=== PATIENT | male | born 1940 | race Hispanic/Latino ===

== ENCOUNTER 2023-09-07 12:10 | Inpatient (IN) | payer OTHER ==
--- OUTSIDE RECORDS SUMMARY | 2023-09-07 12:22 | XMS REPORT | Continuity of Care Document ---
:1940 Author Organization [facility] t Address [address] [facility]. Luis Carlos. [address] [place] [address] Care Team Providers Name Role Phone PCP, PATIENT DOES NOT HAVE A Primary Care Physician Unavaila FROILAN Joseph Attending Clinician Unavailable FROILAN KERN Attending Clinician Unavailable Shayy Valdez Attending Clinician Unavailable Neel Khan Attending Clinician Unavailable Doretha Jara Attending Clinician Unavailable CRISTIAN SRIVASTAVA Attending Clinician Unavailable CRISTIAN SRIVASTAVA Attending Clinician Unavailable Yaneth Gannon MA Attending Clinician Unavailable JOSE BEAL Attending Clinician Unavailable FROILAN KERN Admitting Clinician Unavailable Payers Payer Name Policy Type Policy Number Effective Date Expiration Date S shahrzad [employer] [id number] 2022spring 00:00:00 [place] CIGNA [id number] 2020 2020 HE[facility]PRING 00:00:00 00:00:00 MEDICARE ADVANTAGE HMO CIGNA HEALTHSPRING [id number] 2020 MEDICARE 00:00:00 Cigna-HealthSpring C1 [id number] Common Medicare Replace [facility] Cigna-HealthSpring C1 [id number] Common Medicare Replace [facility] Cigna-HealthSpring C1 [id number] Common Medicare Replace [facility] Cigna-Health[facility]son C1 [id number] Common Medicare Replace [facility] C1 [id number] Common Medicare Replace [facility] C1 [id number] Common Medicare Replace [facility] Cigna-Healthring C1 [id number] Common Medicare Replace [facility] Cigna-HealthDonnellson C1 [id number] Common Medicare Replace [facility] Cig-Healthring C1 [id number] Common Medicare Replace [facility] Problems Condition Condition Condition Status Onset Resolution Last Treating Co mments Source Name Details Category Date Date Treatment Clinician Date [id number] Pre-op [place] [id number] evaluation [facility] [id number] Lipid Problem Active Common screening [facility] [id number] Pain in Problem Active Common right knee [facility] [id number] Other Problem Active Common chronic [facility] pain [facility] [id number] Vitamin D Problem Active Comm on deficiency [facility] [id number] Eosinophil Problem Active Co mmon ia [facility] [id number] Prediabete Problem Active Co mmon s [facility] [id number] Elevated Problem Active Comm on PSA [facility] 34739816 Hypertensi Problem Active Com mon on, Spirit unspecifie - [facility] d type [facility] [id number] Elevated Problem Active Comm on alkaline Spirit phosphatas - [facility] e level [facility] [id number] [place] [address] bilirubin, Spirit elevated [facility] [id number] At risk Problem Active Commo n for falls [facility] [id number] [place] in [place] [address] left knee [facility] Prostate Prostate Problem Active Commo n cancer cancer [facility] [id number] Imbalance Problem Active Com mon [facility] [id number] History of Problem Active Co mmon colon [facility] cancer - [facility] Malignant Malignant Problem Active Com mon tumor of neoplasm Spirit colon of colon, - [facility]I unspecifie [facility] Hyperglyce DM Problem Active Commo n brandon due to (diabetes Spi rit type 2 mellitus), - CHI diabetes type 2, St mellitus uncontroll [facility] Walker as Walker as Problem Active Com mon ambulation ambulation Sp pablo aid aid - [facility] Essential Essential Problem Active Com mon hypertensi (primary) Spi rit on hypertensi - [facility] on [facility] [id number] Primary Problem Active Commo n osteoarthr Spirit itis of - [facility] both knees [facility] Type 2 Type 2 Problem Active Common diabetes diabetes Spirit mellitus mellitus - [facility] without without St complicati complicati [facility] Allergies, Adverse Reactions, Alerts Allergy Allergy Status Severity Reaction(s) Onset Inactive Treating Comm ents Source Name Type Date Date Clinician NO KNOWN Drug Active Univers ALLERGIE Class ity of S [facility] Social History Social Habit Start Date Stop Date Quantity Comments Source Exposure to Not sure [facility] SARS-CoV-2 (event) History of Tobacco Common [facility] - Use [facility] Tobacco use and 2021-03-28 2021-03-28 Smokeless [facility] exposure 00:00:00 00:00:00 tobacco non-user Alcohol intake 2021-03-28 2021-03-28 Current drinker [facility] alth 00:00:00 00:00:00 of alcohol (finding) Sex Ass[birth year] At [birth year] [facility] Smoking Status Start Date Stop Date Source Tobacco smoking consumption Meth [facility] unknown Never Smoker [facility] Medications Ordered Filled Start Stop Current Ordering Indication Dosage Frequency Signature Comments Components Source Medication Medication Date Date Medication? Clinician (SIG) Name Name amLODIPine Yes 1 (one) [facility] (Norvasc) 5-17 time each Healt h 10 MG 21:15: day at the tablet 28 same time. amLODIPine Yes 1 (one) [facility] (Norvasc) 5-17 time each Healt h 10 MG 21:15: day at the tablet 28 same time. amLODIPine Yes 1 (one) [facility] (Norvasc) 5-17 time each Healt h 10 MG 16:15: day at the tablet 28 same time. amLODIPine 0 Yes 1 (one) [facility] (Norvasc) 5-17 time each Healt h 10 MG 16:15: day at the tablet 28 same time. tamsulosin Yes TAKE 1 [facility] (Flomax) 4-01 CAPSULE BY Healt h 0.4 MG 24 00:00: MOUTH ONCE hr capsule 00 DAILY AT BEDTIME tamsulosin 0 Yes TAKE 1 [facility] (Flomax) 4-01 CAPSULE BY Healt h 0.4 MG 24 00:00: MOUTH ONCE hr capsule 00 DAILY AT BEDTIME tamsulosin Yes TAKE 1 [facility] (Flomax) 4-01 CAPSULE BY Healt h 0.4 MG 24 00:00: MOUTH ONCE hr capsule 00 DAILY AT BEDTIME tamsulosin 2020-0 Yes TAKE 1 [facility] (Flomax) 4-01 CAPSULE BY Healt h 0.4 MG 24 00:00: MOUTH ONCE hr capsule 00 DAILY AT BEDTIME meloxicam 2020-0 Yes [facility] (Mobic) 15 3-17 Health MG tablet 00:00: 00 meloxicam 2020-0 Yes [facility] (Mobic) 15 3-17 Health MG tablet 00:00: 00 meloxicam 2020-0 Yes [facility] (Mobic) 15 3-17 Health MG tablet 00:00: 00 meloxicam 2020-0 Yes [facility] (Mobic) 15 3-17 Health MG tablet 00:00: 00 Lisinopril Lisinopril Yes Mindy 1 tablet Common [facility] Amlodipine Amlodipine Yes Mindy 1 tablet Common Besylate Besylate [place] Spi rit - [facility] Mobic Mobic Yes Mindy 1 tablet Common Blue as needed Spirit for pain - [facility] Lisinopril Lisinopril No 1{table QD Lisinopril 20 MG 20 MG t} 20 MG Amlodipine Amlodipine No 1{table QD Amlodipine Besylate 10 Besylate 10 t} Besylate MG MG 10 MG Mobic 15 MG Mobic 15 MG No QD Mobic 15 MG Flomax 0.4 Flomax 0.4 No 1{capsu QD Flomax 0.4 MG MG le} MG Lisinopril Lisinopril No 1{table QD Lisinopril 20 MG 20 MG t} 20 MG amLODIPine amLODIPine No 1{table QD amLODIPine Besylate 10 Besylate 10 t} Besylate MG MG 10 MG Mobic 15 MG Mobic 15 MG No QD Mobic 15 MG Flomax 0.4 Flomax 0.4 No 1{capsu QD Flomax 0.4 MG MG le} MG Lisinopril Lisinopril No 1{table QD Lisinopril 20 MG 20 MG t} 20 MG amLODIPine amLODIPine No 1{table QD amLODIPine Besylate 10 Besylate 10 t} Besylate MG MG 10 MG Mobic 15 MG Mobic 15 MG No QD Mobic 15 MG Flomax 0.4 Flomax 0.4 No 1{capsu QD Flomax 0.4 MG MG le} MG Lisinopril Lisinopril No 1{table QD Lisinopril 20 MG 20 MG t} 20 MG amLODIPine amLODIPine No 1{table QD amLODIPine Besylate 10 Besylate 10 t} Besylate MG MG 10 MG Mobic 15 MG Mobic 15 MG No QD Mobic 15 MG Flomax 0.4 Flomax 0.4 No 1{capsu QD Flomax 0.4 MG MG le} MG Mobic 15 MG Mobic 15 MG No QD Mobic 15 MG Lisinopril Lisinopril No 1{table QD Lisinopril 20 MG 20 MG t} 20 MG Amlodipine Amlodipine No 1{table QD Amlodipine Besylate 10 Besylate 10 t} Besylate MG MG 10 MG Mobic 15 MG Mobic 15 MG No QD Mobic 15 MG Lisinopril Lisinopril No 1{table QD Lisinopril 20 MG 20 MG t} 20 MG Amlodipine Amlodipine No 1{table QD Amlodipine Besylate 10 Besylate 10 t} Besylate MG MG 10 MG Amlodipine Amlodipine No 1{table QD Amlodipine Besylate 10 Besylate 10 t} Besylate MG MG 10 MG Lisinopril Lisinopril No 1{table QD Lisinopril 20 MG 20 MG t} 20 MG Flomax 0.4 Flomax 0.4 No 1{capsu QD Flomax 0.4 MG MG le} MG Mobic 15 MG Mobic 15 MG No QD Mobic 15 MG Amlodipine Amlodipine No 1{table QD Amlodipine Besylate 10 Besylate 10 t} Besylate MG MG 10 MG Mobic 15 MG Mobic 15 MG No QD Mobic 15 MG Lisinopril Lisinopril No 1{table QD Lisinopril 20 MG 20 MG t} 20 MG Flomax 0.4 Flomax 0.4 No 1{capsu QD Flomax 0.4 MG MG le} MG Mobic 15 MG Mobic 15 MG No QD Mobic 15 MG Flomax 0.4 Flomax 0.4 No 1{capsu QD Flomax 0.4 MG MG le} MG Amlodipine Amlodipine No 1{table QD Amlodipine Besylate 10 Besylate 10 t} Besylate MG MG 10 MG Lisinopril Lisinopril No 1{table QD Lisinopril 20 MG 20 MG t} 20 MG Flomax Flomax 2020- Mindy 1 capsule Comm on 02-18 [place] [facility] 00:00 - [facility] :00 [facility] Flomax 0.4 Flomax 0.4 2020- No 1{capsu QD Flomax 0.4 MG MG 02-18 le} MG 00:00 :00 Flomax 0.4 Flomax 0.4 2020- No 1{capsu QD Flomax 0.4 MG MG 02-18 le} MG 00:00 :00 Vital Signs Vital Name Observation Time Observation Value Comments Source height 2021-03-29 10:00:00 65.60 [in_i] [facility] weight 2021-03-29 10:00:00 191.8 [lb_av] [facility] temperature 2021-03-29 10:00:00 97.7 [degF] [facility] bmi 2021-03-29 10:00:00 31.33 kg/m2 [facility] oximetry 2021-03-29 10:00:00 97 % [facility] respiratory rate 2021-03-29 10:00:00 18 /min Comm on [facility] blood pressure 2021-03-29 10:00:00 136 mm[Hg] [facility] - systolic [facility] blood pressure 2021-03-29 10:00:00 72 mm[Hg] [facility] diastolic [facility] Systolic blood 2021-03-28 21:06:00 178 mm[facility]Hg[facility] Diastolic blood 2021-03-28 21:06:00 92 mm[Hg] [facility] Heart rate 2021-03-28 21:06:00 84 /min [facility] 2021-03-28 21:06:00 167.6 cm [facility] weight 2021-03-28 21:06:00 86.864 [facility] BMI 2021-03-28 21:06:00 30.91 kg/m2 [facility] height 2020-09-29 14:40:00 65.60 [in_i] [facility] weight 2020-09-29 14:40:00 195.6 [lb_av] [facility] temperature 2020-09-29 14:40:00 98.4 [degF] [facility] bmi 2020-09-29 14:40:00 31.95 kg/m2 [facility] oximetry 2020-09-29 14:40:00 95 % [facility] respiratory rate 2020-09-29 14:40:00 18 /min Comm on [facility] blood pressure 2020-09-29 14:40:00 141 mm[Hg] Common [facility] - systolic [facility] blood pressure 2020-09-29 14:40:00 65 mm[Hg] Common [facility] - diastolic [facility] Procedures Procedure Date / Time Performed Performing Clinician [facility] e MRI PELVIS W WO CONTRAST 2021-04-06 15:16:15 Cristian Srivastava [facility] MRI PELVIS W WO CONTRAST 2021-04-06 15:16:15 SrivastavaCristian [facility] Plan of Care Planned Activity Planned Date Details Comments Source Future Scheduled 2023 COVID-19 VACCINE (#1) [facility] Test 15:10:39 [code = COVID-19 VACCINE (#1)] Future Scheduled 2023 SHINGLES VACCINES (1 Met [facility] Test 15:10:39 of 2) [code = SHINGLES VACCINES (1 of 2)] Future Scheduled 2023 RSV VACCINES > 60 YR Met [facility] Test 15:10:39 (1 - 1-dose 60+ series) [code = RSV VACCINES > 60 YR (1 - 1-dose 60+ series)] Future Scheduled 2023 65+ PNEUMOCOCCAL Methodi [facility] Test 15:10:39 VACCINE (1 - PCV) [code = 65+ PNEUMOCOCCAL VACCINE (1 - PCV)] Future Scheduled 2023 INFLUENZA VACCINE (#1) [facility] Test 15:10:39 [code = INFLUENZA VACCINE (#1)] Encounters Start End Encounter Admission Attending Care Care Encounter Source Date/Time Date/Time Type Type Clinicians Facility Department ID 2023-09-03 Inpatient X FROILAN KERN [facility] [id number] Univers 09:20:00 FROILAN KERN [facility] 2021-12-07 Outpatient Valdez, Na STLMLC STLMLC [id number] Common 13:45:17 [id number] [facility] 2021-12-07 Outpatient Valdez, Na STLMLC STLMLC [id number] Common 13:04:28 [id number] [facility] 2021-12-07 Outpatient Valdez, Na STLMLC STLMLC [id number] Common 12:17:36 [id number] [facility] 2021-12-07 Outpatient Bill Kin STLMLC STLMLC [id number] Common 12:15:16 [id number] [facility] 2021-12-07 Outpatient Bill, Kin STLMLC STLMLC [id number] Common 12:05:59 [id number] [facility] 2021-12-07 Outpatient Millender, STLMLC STLMLC [id number] Common 11:48:13 Doretha [id number] [facility] 2021-12-07 Outpatient Millender, STLMLC STLMLC [id number] Common 11:31:01 Doretha [id number] [facility] 2021-12-07 Outpatient Millender, STLMLC STLMLC [id number] Common 11:05:51 Doretha [id number] [facility] 2021-12-07 Outpatient Estefani, STGENESISLC STLMLC [id number] Common 11:05:31 Doretha [id number] [facility] 2021-12-07 Outpatient Estefani, STLMLC STLMLC [id number] Common 11:01:24 Doretha [id number] [facility] 2021-05-26 Outpatient SRIVASTAVA, [facility] [id number] [place] 01:02:14 [facility] 2021-05-24 Outpatient SRIVASTAVA, [facility] [id number] [place] 09:38:35 [facility] 2021-04-07 Outpatient SRIVASTAVA, [facility] [id number] [place] 14:51:44 [facility] 2021-05-20 2021-05-20 (TEL) STLMLC STLMLC [id number] Co mmon 00:00:00 00:00:00 [facility] 2021-04-25 2021-04-25 [facility] [facility] 07:01:00 12:05:00 [facility] 2021-04-16 2021-04-16 (TEL) STLMLC STLMLC [id number] Co mmon 00:00:00 00:00:00 [facility] 2021-04-12 2021-04-12 (TEL) STLMLC STLMLC [id number] Co mmon 00:00:00 00:00:00 [facility] 2021-03-30 2021-03-30 Telephone Yaneth Gannon [facility] [id number] [place] 00:00:00 00:00:00 Yaneth Gannon [place] [id number] [facility] [id number] [id number] AND 3 WOMENS 2021-03-29 2021-03-29 OFFICE STLC STLC [id number] Co mmon 00:00:00 00:00:00 VISIT [facility] LEVEL 4 [facility] 2021-03-28 2021-03-28 Office Atif [facility] [id number] [place] 15:07:01 15:22:01 Visit Cristian SUGAR [id number] He [facility] [id number] [id number] AND 3 WOMENS 2021-03-28 2021-03-28 EXT [facility] OP [facility], EXT [facility] [id number] [place] 00:00:00 00:00:00 Cristian LOCATION [id number] H ealth [id number] 2021-03-28 2021-03-28 EXT [facility] OP [facility], EXT [facility] [id number] [place] 00:00:00 00:00:00 Cristian LOCATION [id number] H ealth [id number] 2021-02-22 2021-02-22 (TEL) STLMLC STLMLC [id number] Co mmon 00:00:00 00:00:00 [facility] 2020-11-18 2020-11-18 (TEL) STLMLC STLMLC [id number] Co mmon 00:00:00 00:00:00 [facility] 2020-09-29 2020-09-29 OFFICE STLMLC STLMLC [id number] Co mmon 00:00:00 00:00:00 VISIT EST Spir it PT LEVEL 3 [facility] 2020-09-07 2020-09-07 [facility] [id number] [place] 00:00:00 00:00:00 JOSE Asif [facility] 2020-08-10 2020-08-10 (TEL) STLMLC STLMLC [id number] Co mmon 00:00:00 00:00:00 [facility] 2020-08-09 2020-08-09 (TEL) STLMLC STLMLC [id number] Co mmon 00:00:00 00:00:00 [facility] 2020-07-08 2020-07-08 [facility] [id number] Common 10:45:00 10:45:00 t Specialty/U Sp pablo Specialty rology [facility] Clinic [facility] 2020-07-05 2020-07-05 Out[facility] [id number] Common 16:21:00 16:21:00 t Specialty/U Sp pablo Specialty rology - [facility] /Urology Clinic [facility] 2020-06-29 2020-06-29 [facility] [id number] Common 14:30:00 14:30:00 t Specialty/U Sp pablo Specialty rology - [facility]I /[facility] Clinic [facility] 2020-06-09 2020-06-09 [facility] [id number] Common 14:17:00 14:17:00 t Specialty/U Sp pablo Specialty rology - [facility] /Urology Clinic [facility] 2020-06-01 2020-06-01 [facility] [id number] Common 10:15:00 10:15:00 t Specialty/U Sp pablo Specialty rology - [facility] /Urology Clinic [facility] 2020-05-27 2020-05-27 Out[facility] [id number] Common 08:00:00 08:00:00 t [facility] Road [facility] 2020-05-24 2020-05-24 [facility] [id number] Common 09:40:00 09:40:00 t [facility] it Road [facility] 2019-11-19 2019-11-19 Out[facility] [id number] Common 03:50:00 03:50:00 t [facility] it Road [facility] 2019-10-18 2019-10-18 Outpatient [facility] [id number] Common 04:14:00 04:14:00 t [facility] it Road [facility] 2019-10-14 2019-10-14 Outpatient [facility] [id number] Common 11:00:00 11:00:00 t [facility] it Road [facility] 2019-08-20 2019-08-20 Outpatient [facility] [id number] Common 09:30:00 09:30:00 t Specialty/U Sp pablo Specialty rology - [facility] /Urology Clinic [facility] 2019-07-08 2019-07-08 Outpatient [facility] [id number] Common 09:30:00 09:30:00 t Specialty/U Sp pablo Specialty rology - [facility] /[facility] Clinic [facility] 2019-05-29 2019-05-29 Outpatient [facility] [id number] Common 14:00:00 14:00:00 t Specialty/U Sp pablo Specialty rology - [facility] /Urology Clinic [facility] 2019-05-22 2019-05-22 Outpatient [facility] [id number] Common 13:20:00 13:20:[address] [facility] 2019-05-08 2019-05-08 Outpatient [facility] [id number] Common 09:48:00 09:48:[address] Sp[address] [facility] 2019-05-07 2019-05-07 Outpatient [facility] [id number] Common 13:25:00 13:25:[address] Sp[address] [facility] 2019-04-29 2019-04-29 Outpatient [facility] [id number] Common 11:20:00 11:20:[address] Sp[address] [facility] 2018-11-21 2018-11-21 Outpatient [facility] [id number] Common 00:31:00 00:31:[address] [facility] 2018-11-20 2018-11-20 Outpatient [facility] [id number] Common 11:30:00 11:30:[address] [facility] 2018-07-19 2018-07-19 Outpatient [facility] [id number] Common 14:30:00 14:30:[address] Sp[address] [facility] Results Test Description Test Time Test Comments Results Result Comments Source Chest Pa And Lat (2 Chest Pa And Lat Views) (2 Views)
[2023-09-07 12:38] VITALS: BMI 31.9
[2023-09-07] MEDS ORDERED: LACTULOSE 20 GM/30 ML UCUP PO PRN (15:25)
[2023-09-07] MEDS: ENOXAPARIN 40 MG/0.4 ML SQ SCH (17:11)
[2023-09-07] MEDS ORDERED: GLUCAGON 1 MG/VIAL IM PRN (18:12)
[2023-09-07] MEDS ORDERED: D10W 250 ML BAG IV PRN (18:21)
[2023-09-07] MEDS: MAGNESIUM OXIDE 400 MG TAB PO SCH (19:44)
[2023-09-07] MEDS: GABAPENTIN 100 MG CAP PO SCH (19:44)
[2023-09-07] MEDS: ATORVASTATIN 40 MG TAB PO SCH (19:44)
[2023-09-07] MEDS: INSULIN REGULAR (HUMAN) 100 UNIT/ML SQ SCH (19:45)
[2023-09-07] MEDS: HYDROCODONE/APAP 5/325 MG TAB PO PRN (21:37)
[2023-09-07 22:53] LABS: Specific Gravity 1.028 (1.005-1.030); Urine Bacteria None Seen /HPF (<20); Urine Bilirubin NEGATIVE (Negative); Urine Blood Negative (Negative); Urine Clarity Clear (Clear); Urine Color Yellow (Yellow); Urine Glucose NEGATIVE (Negative); Urine Mucus 1+ /HPF (None Seen); Urine Protein TRACE (Negative); Urine RBC <5 /HPF (None Seen); Urine Urobilinogen 1+ (Normal); Urine pH 5.5 (5.0-7.0)
--- NOTE | 2023-09-08 02:42 | HP ---
Date of Admission: 09/07/2023 Time Of Service: 1:00 p.m. Chief Complaint: "I had a stroke and my left side is weak." History Of Present Illness: Mr. Jasmine is an 83-year-old patient with hypertension, diabetes quentin itus, colon cancer, prostate cancer, and poor compliance with medications, who came to [facility] on 09/01/2023 with left-sided weakness. He was asleep and woke up with the symptoms and was la st known well around 10 p.m. The following day is when he woke up and tried to stand, but left leg w as weak and had to crawl on the floor. Also noted left arm weakness. At [facility], CT sca n of the head showed no acute ischemic or hemorrhagic changes, but microvascular small-vessel ischemi c disease identified. 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 He continued his medication for diabetes mellitus and hy pertension and was put on high-dose statin. He continued insulin sliding scale for diabetes mellitus . The patient did have evaluation by Physical Therapy and it was determined that he required moderat e assistance for his ability to transfer, to ambulate, to take care of his activities of daily living . He did, previously, had a full independent functioning and was living with roommates and anglican vo lunteers. As a result of his medical comorbid conditions and his significant loss or decrease of his level of functioning, and his acute stroke, he was determined to be an [facility] where he will receive physical, occupational, speech therapy, physician evaluat ion management on a daily basis, prison 24 hours a day and social worker delinquency prevention to maximize his ind ependence and return home and minimize his risk of rehospitalization or worsening. Past Medical History: Diabetes mellitus, hypertension, colon cancer, prostate cancer, medication non compliance. Allergies: NO KNOWN DRUG ALLERGIES. Imaging: Imaging studies on 09/03/2023, CT angiogram of the head showed there is severe stenosis of the distal M1 segment of the left MCA. The remainder of MCA is patent and there is no other high-gra de stenosis or large vessel occlusion, otherwise. There is a prominent right paratracheal lymph node with indeterminate ground glass nodules in the right upper lobe of lung. On 09/03, a chest CT scan showed no acute issues, but as noted, the parenchymal lymph node changes. On 09/04, an MRI of the br ain showed acute to subacute infarct in the posterior limb of the right internal capsule consistent w ith the patient's left-sided deficits. Medications: Aspirin 81 mg daily, Plavix 75 mg daily, Lipitor 40 mg at bedtime, amlodipine 10 mg jill ly, Lovenox 40 mg subcutaneously daily, gabapentin 100 mg twice daily, lactulose 10 g twice daily, li docaine patch apply topically to the left knee as needed, Prinivil 40 mg daily, magnesium oxide 400 m g twice daily, Protonix 40 mg daily, Senokot-S 2 at bedtime. Family History: Noncontributory. Social History: Denies alcohol, tobacco, or IV drug use currently. Laboratory Studies: White blood cell count 7.9, hemoglobin 15.1, platelets 302. INR 1.09. Sodium 1 44, potassium 3.9, chloride 112, uuplzv-[id number] 27, BUN 21, creatinine 0.51, glucose 95 up to 113, A ST 20, ALT 29, alkaline phosphatase is 144, PSA elevated at 15. HDL cholesterol 52, LDL cholesterol 81, total cholesterol 158, triglycerides 175. Urinalysis shows 66 microalbumin to creatinine ratio, which is elevated and urine total protein is trace, otherwise unremarkable urinalysis. Review of Systems: Mr. Jasmine does report pain in the right knee from arthritis. Otherwise, mild arthralgias of the right knee and shoulders, mild myalgias and incoordination with some weakness in the right upper and lower extremities. He reported no bowel movements for 4 days up to earlier today when he had 2 bowel movements after receiving stool softeners and laxatives. Otherwise, no psychiatric complaints. No significant pulmonary complaints. No genitourinary complaints. No dermatological complaints. Physical Examination: Vital Signs: Blood pressure 157/88, pulse up to 95, respiratory rate 16, temperature 98.1, oxygen sa turation 95%. General: Mr. Jasmine is getting ready to do physical therapy. He was standing with a walker and t he physical therapist at his side. HEENT: He appears normocephalic. He has poor dentition. He is atraumatic and sclerae anicteric. O ropharynx is moist. Neck: Supple. Chest: Clear. Heart: Regular. Extremities: Show in his left knee, there is some swelling where there is arthritis. Otherwise, no cyanosis or edema. Neurological: In terms of cranial nerves, he has no focal cranial nerve deficits, however, his left upper and lower extremity show [id number] weakness around 4/5 proximally and distally. There i s decreased sensation in the left upper and lower compared to right upper and lower extremities. David e ataxic gait when he attempts to ambulate but drop up in the left lower extremity. Current Level Of Functioning: Mod assist for eating, oral hygiene, toileting, bathing, upper and low er body dressing. Max assist for donning and doffing footwear, contact guard for rolling right-to-le ft; moderate assistance for lying to sitting, sit to stand. Transfer from bed to chair, mod assist. Toilet transfer, moderate assistance and moderate assistance to ambulate 70 feet with a rolling walk er. Rehabilitation And Medical Assessment And Plan: [facility] with impairment category 01, stroke, his impairment group code is 01.1 left body involveme nt, right brain and his etiologic diagnosis is right subcortical stroke. His comorbid conditions, di abetes mellitus type 2, hypertension, and decreased mobility, arthritis and left knee pain. Plan: 1.He will have physical, occupational and speech therapy for 3.5 hours, 5 of 7 days. 2.We will put a lidocaine patch, one already there and gabapentin for left arthritic knee pain. 3.Lovenox for DVT prophylaxis. 4.Lipitor for dyslipidemia. 5.Aspirin 81 mg and Plavix 75 mg daily for stroke risk reduction. 6.Norvasc 10 mg daily and Prinivil 40 mg daily for hypertension. 7.He did report some mild spasming in the right calf. He will have magnesium 400 mg twice daily. 8.Protonix for GE reflux and as needed. If he becomes constipated again, he will have Senokot-S and lactulose. 9.He does have an insulin sliding scale and currently blood sugars are fairly well controlled. Impact Of Comorbidities: Currently, the arthritic pain in the left knee is making it a mild challeng e for him to stand along with the stroke affecting the left side. As noted, we will have patch, june pentin. If need be, we will have Ultram or stronger medication to help with his pain. Rehab Specific Plan: Mr. Jasmine has 3.5 hours, 5 of 7 days of physical, occupational, speech ther apy to help with his improvement in his transfers from bed to chair, to toilet and to shower along wi th his ability to perform showering and toileting in addition to his capacity to perform other activi ties of daily living. He will be able to ambulate 250 feet with a rolling walker with modified indep endence, up and down 10 steps with modified independence. Propel a wheelchair 250 feet with modified independence and performing cognitive functioning with modified independence. He will chew and swal low with modified independent as well. He will also have prison 24 hours a day, physician e valuation on a daily basis. He will have Social Work for assisting with his discharge planning. Mr. Jasmine has a good understanding of the process of admission to the inpatient rehabilitation [facility] and has a potential to make good improvement and will receive physical, occupational, and spee ch therapy. If need be, services from Nutrition and the Hospitalist Service may be consulted. Given his complex medical condition and risk of further complications, rehabilitation cannot be safely or effectively performed at a lower level facility such as a prison facility. Barriers To Discharge: Currently, his arthritic pain in the left knee where he is also weak from his stroke is a mild barrier, but can be overcome with mitigating factors such as addressing the pain an d the arthritic swelling. Estimated Length Of Stay: Around 12 days. Disposition: Home with friends and family. Prognosis: Good. Rehabilitation Goals: 1.Become independent with upper and lower body dressing, toileting, showering. 2.Independent with ambulating 250 feet with a rolling walker. 3.Independent with up and down 10 steps. 4.Independent with his mobilizing a wheelchair 250 feet. 5.Independent with his cognitive functioning, chewing, swallowing. 6.Have all of his medical conditions managed optimally. The above goals were reviewed with Mr. Jasmine and he is in agreement. By signing this document, I acknowledge that I personally performed a full physical examination on Mr Shira Jasmine no later than 24 hours after his admission to the inpatient rehabilitation facility and d etermined that he is able to tolerate the above course of treatment at an intensive level for a reaso nable period of time. A detailed individualized plan of care for him will be completed by [facility] 4 based on the preadmission screen, history and physical and therapy evaluations. MARTY Voice ID: [id number]
[2023-09-08] MEDS: INSULIN REGULAR (HUMAN) 100 UNIT/ML SQ SCH (07:15)
[2023-09-08 07:32] LABS: Absolute Lymphocytes (CBC) 1.5 K/uL (0.7-4.9); Hematocrit 44.1 % (39.6-49.0); Lymphocytes % 16.2 % (15.3-44.8); MCV 85.8 fL (80-100); Platelets 342 thou/uL (152-406); RBC Red Blood Cell Count 5.14 M/uL (4.33-5.43)
[2023-09-08] MEDS: GABAPENTIN 100 MG CAP PO SCH ×2 (07:50→20:30)
[2023-09-08] MEDS: CLOPIDOGREL 75 MG TABLET PO SCH (07:50)
[2023-09-08] MEDS: PANTOPRAZOLE 40MG TABLET PO SCH (07:50)
[2023-09-08] MEDS: ASPIRIN EC 81 MG TAB PO SCH (07:50)
[2023-09-08] MEDS: LIDOCAINE 4% PATCH TOP SCH (07:51)
[2023-09-08] MEDS: MAGNESIUM OXIDE 400 MG TAB PO SCH ×2 (07:51→20:31)
[2023-09-08] MEDS ORDERED: lisinopriL 20 MG TAB PO SCH ×2 (08:00→08:15)
[2023-09-08] MEDS ORDERED: AMLODIPINE 10 MG TAB PO SCH (08:00)
[2023-09-08 08:07] LABS: Albumin 3.6 g/dL (3.4-5.0); Magnesium 2.4 mg/dL (1.6-2.4); Potassium 3.8 mEq/L (3.5-5.1); Prealbumin 20.6 mg/dL (20-40)
[2023-09-08] MEDS: AMLODIPINE 5 MG TAB PO SCH ×3 (08:15→20:31)
[2023-09-08] MEDS: lisinopriL 20 MG TAB PO SCH ×2 (12:00→20:31)
[2023-09-08] MEDS: ENOXAPARIN 40 MG/0.4 ML SQ SCH (16:26)
[2023-09-08] MEDS: ATORVASTATIN 40 MG TAB PO SCH (20:31)
[2023-09-09] MEDS: PANTOPRAZOLE 40MG TABLET PO SCH (06:55)
[2023-09-09] MEDS: lisinopriL 20 MG TAB PO SCH ×2 (08:00→19:44)
[2023-09-09] MEDS: CLOPIDOGREL 75 MG TABLET PO SCH (08:07)
[2023-09-09] MEDS: GABAPENTIN 100 MG CAP PO SCH ×2 (08:07→19:45)
[2023-09-09] MEDS: ASPIRIN EC 81 MG TAB PO SCH (08:07)
[2023-09-09] MEDS: LIDOCAINE 4% PATCH TOP SCH (08:07)
[2023-09-09] MEDS: MAGNESIUM OXIDE 400 MG TAB PO SCH ×2 (08:07→19:44)
[2023-09-09] MEDS: AMLODIPINE 5 MG TAB PO SCH ×2 (08:08→19:44)
[2023-09-09] MEDS: ENOXAPARIN 40 MG/0.4 ML SQ SCH (16:02)
[2023-09-09 19:43] LABS: Absolute Lymphocytes (CBC) 1.2 K/uL (0.7-4.9); Hematocrit 43.8 % (39.6-49.0); Lymphocytes % 6.1 % (15.3-44.8); MCV 85.5 fL (80-100); MPV 7.2 fL (7.6-11.3); Platelets 331 thou/uL (152-406); RBC Red Blood Cell Count 5.12 M/uL (4.33-5.43)
[2023-09-09] MEDS: ACETAMINOPHEN 325 MG TABLET PO PRN (19:44)
[2023-09-09] MEDS: ATORVASTATIN 40 MG TAB PO SCH (19:45)
[2023-09-09] MEDS ORDERED: levoFLOXacin 500 MG TAB PO SCH ×2 (20:00)
--- NOTE | 2023-09-09 20:16 | RAD REPORT ---
EXAM DESCRIPTION: Anabella Single View09/09/2023 8:07 pm CLINICAL HISTORY: Chest pain COMPARISON: 2020 FINDINGS: The lungs appear clear of acute infiltrate. The heart is normal size IMPRESSION: No acute abnormalities displayed
[2023-09-09] MEDS: TRAMADOL HCL 50 MG TAB PO PRN (22:15)
[2023-09-10 06:46] LABS: Magnesium 2.3 mg/dL (1.6-2.4); Potassium 3.9 mEq/L (3.5-5.1)
[2023-09-10] MEDS: PANTOPRAZOLE 40MG TABLET PO SCH (07:19)
[2023-09-10] MEDS: ASPIRIN EC 81 MG TAB PO SCH ×3 (07:19→07:33)
[2023-09-10] MEDS: CLOPIDOGREL 75 MG TABLET PO SCH ×2 (07:20→07:32)
[2023-09-10] MEDS: MAGNESIUM OXIDE 400 MG TAB PO SCH ×3 (07:32→19:47)
[2023-09-10] MEDS: GABAPENTIN 100 MG CAP PO SCH ×2 (07:33→19:47)
[2023-09-10] MEDS: AMLODIPINE 5 MG TAB PO SCH ×2 (07:33→19:06)
[2023-09-10] MEDS: TRAMADOL HCL 50 MG TAB PO PRN ×2 (08:21→14:29)
--- NOTE | 2023-09-10 09:10 | RAD REPORT ---
EXAM DESCRIPTION: RAD - Knee Left 2 View - 09/10/2023 8:48 am CLINICAL HISTORY: Knee pain FINDINGS: Marked osteoarthritis left knee. No fracture or dislocation Mild lateral subluxation of the tibia on the femur
[2023-09-10] MEDS: LIDOCAINE 4% PATCH TOP SCH (09:26)
--- NOTE | 2023-09-10 09:30 | P.CNS ---
Date of Consult: 09/10/23 Reason for Consult: Painful toenails Chief Complaint: painful elongated toenails x 10 Allergies No Known Allergies Allergy (Verified 09/07/23 12:38) Home Medications: Amlodipine [Norvasc] 5 mg PO BID 09/07/23 Aspirin [Aspirin EC 81 MG] 81 mg PO DAILY 09/07/23 Atorvastatin Calcium [Lipitor] 40 mg PO BEDTIME 09/07/23 Clopidogrel Bisulfate [Plavix*] 75 mg PO DAILY 09/07/23 Lactulose 15 ml PO DAILY 09/07/23 Lisinopril [Zestril] 20 mg PO BID 09/07/23 Pantoprazole [Protonix Tab] 40 mg PO DAILY 09/07/23 Sennosides/Docusate Sodium [Senokot-S Tablet] 1 each PO BID PRN 09/07/23 - Past Medical/Surgical History Diabetic: No - Social History Alcohol use: No CD- Drugs: No Caffeine use: No Place of Residence: Home Review of Systems 10-point ROS is otherwise unremarkable Physical Examination Temp Pulse Resp BP Pulse Ox 98.4 F 57 18 148/73 H 93 09/10/23 07:52 09/10/23 07:52 09/10/23 08:21 09/10/23 07:52 09/10/23 08:21 General: Alert, In no apparent distress, Oriented x3 Cardiovascular: No edema, Normal pulses Capillary refill: <2 Seconds Musculoskeletal: No clubbing, No swelling, No contractures, No erythema, No tenderness, No warmth Integumentary: No rashes, No breakdown, No significant lesion, No tenderness/swelling, No erythema, No warmth, No cyanosis, Other (Thickened, hypertrophic toenails with subungual debris x 10) Neurological: Sensation intact Laboratory Data (last 24 hrs) 09/10/23 09/09/23 05:20 19:22 WBC 19.30 H Hgb 14.5 Hct 43.8 Plt Count 331 Sodium 135 L Potassium 3.9 BUN 23 H Creatinine 1.01 Glucose 116 H Magnesium 2.3 - Problems (1) Tinea unguium Current Visit: Yes Status: Acute (2) [facility] (current) use of anticoagulants Current Visit: Yes Status: Acute Conclusions/Impression: Mechanical debridement of nails at bedside Physician Review: Patient Assessed, Agree with Above Assessment and Plan
[2023-09-10] MEDS: lisinopriL 20 MG TAB PO SCH ×2 (10:04→19:06)
[2023-09-10] MEDS: HYDROCODONE/APAP 5/325 MG TAB PO PRN (10:09)
[2023-09-10] MEDS: ACETAMINOPHEN 325 MG TABLET PO PRN (12:18)
[2023-09-10] MEDS ORDERED: LIDOCAINE 4% PATCH TOP ONE (14:00)
[2023-09-10 14:17] LABS: Absolute Lymphocytes (CBC) 0.7 K/uL (0.7-4.9); Hematocrit 42.3 % (39.6-49.0); Lymphocytes % 2.4 % (15.3-44.8); MCV 86.6 fL (80-100); MPV 7.1 fL (7.6-11.3); Platelets 298 thou/uL (152-406); RBC Red Blood Cell Count 4.89 M/uL (4.33-5.43)
[2023-09-10 15:40] LABS: Blood Morphology Comment NOT SEEN (NOT SEEN); Platelet Estimate ADEQ; White Blood Cell Scan OK (OK)
[2023-09-10] MEDS ORDERED: ONDANSETRON 4 MG (ODT) TAB PO PRN (16:31)
[2023-09-10] MEDS: ENOXAPARIN 40 MG/0.4 ML SQ SCH (16:38)
--- NOTE | 2023-09-10 16:39 | RAD REPORT ---
EXAM DESCRIPTION: CT - Chest Abd Pelvis Wo Con - 09/10/2023 4:19 pm CLINICAL HISTORY: Chest and abdomen pain. R/O Abscess COMPARISON: Chest Single View dated 09/09/2023; Abdomen Pelvis W Contrast dated 01/28/2021 TECHNIQUE: A limited noncontrast study was performed. All CT scans are performed using dose optimization technique as appropriate and may include automated exposure control or mA/KV adjustment according to patient size. FINDINGS: The lungs are clear.No pleural or pericardial effusion.A few mildly prominent lymph nodes are seen in the mediastinum, pretracheal space measuring 10 mm and sub- carinal space measuring 13 mm . Noncontrast assessment of the liver shows no focal mass or biliary dilatation. The spleen, pancreas, adrenal glands are normal. No left sided stone or hydronephrosis. There is evidence of an irregular m asslike lesion emanating from the posterior cortex of the right kidney measuring 4 cm. This is incomp letely assessed on limited noncontrast study No bowel obstruction, free air, free fluid or abscess. Moderate stool is present throughout the colon . Scattered diverticulosis coli without diverticulitis. No pathologic lymphadenopathy in the abdomen or pelvis. Moderate lumbar degenerative changes. IMPRESSION: Suspected 4 cm right renal solid mass is present which is worrisome for neoplastic lesio n.Contrast enhanced CT/ MRI or renal ultrasound would be recommended. Scattered diverticulosis coli without diverticulitis.
[2023-09-10] MEDS: PIPER TAZO 3.375 GM in NA CHLORIDE 0.9% 100 ML IV SCH (17:09)
[2023-09-10] MEDS ORDERED: ONDANSETRON 4 MG (ODT) TAB ONE (17:21)
[2023-09-10] MEDS ORDERED: NA CHLORIDE 0.9% 100 ML ONE (17:22)
[2023-09-10] MEDS ORDERED: PIPERACIL/TAZO 3.375 GM VIAL IV ONE (17:22)
[2023-09-10] MEDS: VANCOMYCIN 2.25 GM in NA CHLORIDE 0.9% 500 ML IVPB ONE ×2 (18:00→21:13)
[2023-09-10] MEDS ORDERED: NA CHLORIDE 0.9% 1,000 ML ONE (19:13)
[2023-09-10] MEDS: ATORVASTATIN 40 MG TAB PO SCH (19:46)
--- NOTE | 2023-09-10 21:32 | PN ---
Date of Progress Note: 09/10/2023 Time Of Service: 1:40 p.m. Subjective: Mr. Jasmine is sitting in a chair getting ready to do therapy. He does report some pa in in the left knee. An x-ray was done there actually showing no fractures, just some degenerative d isease there. Otherwise, he does have the left-sided residual weakness from his stroke affecting the right subcortical region. No other new complaints. Review of Systems: No fevers, chills. Has myalgias, arthralgias. No rash. No psychiatric issues. No headache. No ma corey other issues such as GI or complaints. Physical Examination: Vital Signs: Blood pressure 118/58, pulse 70, respiratory rate 18, temperature 96.9, oxygen saturati on 94%, weight 198 pounds, height is 5 feet 6 inches, BMI 32. General: Mr. Jasmine is in his chair, getting ready to do therapy. He is in no acute distress. Extremities: Does have mild left upper and lower extremity weakness. His coordination and numbness unchanged. No new findings there. Laboratory Studies: White blood cell count did elevate significantly up to 27,000, today is the 30th ; on the , it was 9000; on the , 19,000; now 27,000. Neutrophils increased from 57.7 to 79.2 , then to 89.4 today. He was started on Zosyn and vancomycin. ID was consulted. The patient's bloo d work did show otherwise negative Procalcitonin less than 0.05, lactic acid was negative at 1.3, how ever, C-reactive protein increased to 7.0 on the and today . His glucose was slightly elevated to 116, creatinine 1.01, BUN 23. Sodium 135, potassium 3.9, chloride 106, carbon dioxide 2 6. Lactate dehydrogenase 146, magnesium 2.3, calcium 8.5. Urinalysis shows a trace of protein and 1 + urobilinogen, but otherwise is negative with no bacteria seen, less than 5 red blood cells and whit e blood cells, negative nitrite, negative esterase. He has a rheumatoid factor pending and again ID has been consulted. He had a chest, abdomen, and pelvis CT scan to identify possible source of poten tially abscess or some reason for a very elevated white blood cell count. Imaging showed lungs were clear, no pleural effusion or pericardial effusion. There were few mildly prominent lymph nodes seen in the mediastinum measuring 10 mm and one in the carinal space measuring 13 mm. There was no liver mass or biliary dilatation. The spleen, pancreas, and adrenal glands were normal. No left-sided st one or hydronephrosis. There was an irregular mass-like lesion emanating from the posterior cortex o f the right kidney measuring 4 cm and it was recommended that an ultrasound be done, which is ordered . There was no bowel obstruction, free air, or fluid or abscess. There was moderate stool present o gino the colon, scattered diverticulosis without diverticulitis. No pathologic lymphadenopathy in the abdomen and pelvis. An impression was a suspected 4 cm renal solid mass worrisome for neoplastic le sebas. There was scattered diverticulosis coli without diverticulitis. It should be noted that, that study did not explain to a significant degree the patient's symptoms. X-ray was done on his left kn ee, where he had complaints and the study showed no acute fractures. There was mild subluxation of t he tibia and the fibula and again marked osteoarthritis of the left knee, but no fracture or dislocat ion. Medications: Tylenol 650 mg every 6 hours as needed, [place] 5/325 every 6 hours as needed, Norvasc 5 mg twice daily, aspirin 81 mg daily, Lipitor 40 mg at bedtime, Plavix 75 mg daily, Lovenox 40 mg subc utaneously daily, gabapentin 100 mg twice daily, lactulose 10 g twice daily as needed for constipatio n, lidocaine patch apply 2 topically daily, Prinivil 20 mg twice daily, magnesium oxide 400 mg twice daily, Zofran 4 mg every 6 hours as needed, Protonix 40 mg daily, and Zosyn 3.375 mg every 8 hours, S enokot-S 2 tablets at bedtime, Ultram 50 mg daily, vancomycin per protocol. Levofloxacin was discont inued. Current Functional Status: Mr. Jasmine was able to perform [id number] with minimum assistance, s tand to pivot transfers also minimum assistance, supine to sit transfers with standby assistance. He did sit to stands. With his occupational therapy, he has significant pain in his left kn ee, maximum assistance required for transfers, minimal assistance for supine to sit, and edge of bed transfers. With speech, he recalled 2 of 3 unrelated pictures after 5 minutes and 3 of 3 after 5 min utes on second attempt utilizing verbal rehearsal and imagery. He use deducted reasoning skills with 70% accuracy and minimum assistance for problem solving. Progress Towards Rehabilitation Goals: Mr. Jasmine is making slow progress because of significant pain in his left knee and he has, what appears to be, significant potential infection, although tami eters for sepsis have been negative. Abdomen and pelvis and chest CT scan do not explain his symptom s; however, a renal mass was identified, which is being further evaluated by an ultrasound. It is ag ain unclear why he did have elevated white count and actually he did spike a fever, T-max over the we ekend, but all have been normotensive in the last 48 hours. Assessment: Mr. Jasmine is an 83-year-old patient with very elevated C-reactive protein, white cou nt elevated as well, and neutrophils elevated without clear etiology. He did spike a fever and now i s normotensive again. He has a subcortical stroke and is admitted to the rehabilitation unit with th e residual left-sided weakness. He does have severe osteoarthritis of the left knee. He has additio nal comorbidities of diabetes mellitus type 2, hypertension. Also, he has dyslipidemia. Plan: 1.He will have physical, occupational, and speech therapy for 3.5 hours, 5/7 days. 2.Lidocaine patch and gabapentin for left knee arthritic pain. 3.Lovenox for DVT prophylaxis. 4.Lipitor for dyslipidemia. 5.Aspirin and Plavix for stroke risk reduction. 6.Norvasc and Prinivil for hypertension. 7.GE reflux will be treated with Protonix. 8.Senokot-S for constipation. 9.He does have the ID service now on board for his very elevated white blood cell count. He is on v ancomycin and Zosyn, which we will continue until an ID service has seen him or for 7 days. He will again continue with therapy as tolerated. LB/CHAR Voice ID: [id number] Report ID: [id number]
--- NOTE | 2023-09-10 22:10 | RAD REPORT ---
EXAM DESCRIPTION: US - Renal Ultrasound-Complete - 09/10/2023 9:44 pm CLINICAL HISTORY: Recommendations from the ct chest pelvis and abd. Flank pain COMPARISON: <Comparisons> FINDINGS: Both kidneys are normal in size, shape and echotexture. The right kidney measures 11.4 x 6.8 x 4.7 cm. No hydronephrosis. 5.4 x 5.0 x 4.1 cm solid mass is se en right kidney most compatible with neoplasia. The left kidney measures 11.1 x 5.8 x 4.2 cm. No hydronephrosis, focal mass or perinephric fluid. The urinary bladder is incompletely distended without gross abnormality seen. 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
[2023-09-11] MEDS: PIPER TAZO 3.375 GM in NA CHLORIDE 0.9% 100 ML IV SCH ×2 (00:56→07:13)
[2023-09-11] MEDS ORDERED: PIPERACIL/TAZO 3.375 GM VIAL IV ONE ×2 (01:08→07:06)
[2023-09-11] MEDS ORDERED: NA CHLORIDE 0.9% 100 ML ONE ×2 (01:09→07:06)
[2023-09-11 03:12] LABS: Rheumatoid Factor NEG (NEG)
[2023-09-11] MEDS: PANTOPRAZOLE 40MG TABLET PO SCH (07:13)
[2023-09-11] MEDS: LIDOCAINE 4% PATCH TOP SCH (07:13)
[2023-09-11] MEDS: ASPIRIN EC 81 MG TAB PO SCH (07:52)
[2023-09-11] MEDS: CLOPIDOGREL 75 MG TABLET PO SCH (07:52)
[2023-09-11] MEDS: MAGNESIUM OXIDE 400 MG TAB PO SCH ×2 (07:52→19:55)
[2023-09-11] MEDS: GABAPENTIN 100 MG CAP PO SCH ×2 (07:52→19:54)
[2023-09-11] MEDS: AMLODIPINE 5 MG TAB PO SCH ×2 (07:53→19:54)
[2023-09-11] MEDS: TRAMADOL HCL 50 MG TAB PO PRN (08:09)
--- NOTE | 2023-09-11 09:08 | P.CNS ---
Date of Consult: 09/11/23 Reason for Consult: severe leukocytosis Chief Complaint: painful elongated toenails x 10 Allergies No Known Allergies Allergy (Verified 09/07/23 12:38) Home medications list reviewed: Yes Home Medications: Amlodipine [Norvasc] 5 mg PO BID 09/07/23 Aspirin [Aspirin EC 81 MG] 81 mg PO DAILY 09/07/23 Atorvastatin Calcium [Lipitor] 40 mg PO BEDTIME 09/07/23 Clopidogrel Bisulfate [Plavix*] 75 mg PO DAILY 09/07/23 Lactulose 15 ml PO DAILY 09/07/23 Lisinopril [Zestril] 20 mg PO BID 09/07/23 Pantoprazole [Protonix Tab] 40 mg PO DAILY 09/07/23 Sennosides/Docusate Sodium [Senokot-S Tablet] 1 each PO BID PRN 09/07/23 - Past Medical/Surgical History Diabetic: No - Social History Alcohol use: No CD- Drugs: No Caffeine use: No Place of Residence: Home Review of Systems 10-point ROS is otherwise unremarkable Eyes: Unremarkable ENT: Unremarkable Respiratory: Unremarkable Cardiovascular: Unremarkable Gastrointestinal: Unremarkable Genitourinary: Unremarkable Musculoskeletal: Other (left knee pain, reports left knee pain is chronic) Integumentary: Unremarkable Physical Examination Temp Pulse Resp BP Pulse Ox 97 F 91 H 16 143/67 H 95 09/11/23 06:47 09/11/23 07:53 09/11/23 08:09 09/11/23 07:53 09/11/23 08:09 General: Alert, In no apparent distress, Oriented x3 HEENT: Atraumatic, Normocephalic, Mucous membr. moist/pink Neck: Supple, JVD not distended Respiratory: Clear to auscultation bilaterally, Normal air movement Cardiovascular: No edema, Normal S1 S2 Gastrointestinal: Normal bowel sounds, Soft and benign, No tenderness Musculoskeletal: Other (moves all extremities. Pain left knee which he reports as chronic. ) Integumentary: No rashes, No breakdown, No significant lesion Neurological: Normal speech, Normal tone, Normal affect Laboratory Data - Reviewed Microbiology Data - Reviewed Imagings Data: - Reviewed Conclusions/Impression: Problem List Leukocytosis Diabetes Mellitus Hypertension Recent CVA Colon Cancer Prostate Cancer Leukocytosis, Fever - Leukocytosis [ WBC 9 -> 19.3 -> 27 ] - Febrile on 09/09 with temp 101.2 F - CRP 7 -> 168 - Urine culture 09/07: Mixed emily ; colony count <10,000 CFU/mL - Blood cultures 09/11: Pending - Currently on Zosyn and Vancomycin Imaging: - XR Chest 09/09: "FINDINGS: The lungs appear clear of acute infiltrate. The heart is normal size. IMPRESSION: No acute abnormalities displayed." - CT Chest abdomen pelvis wo contrast 09/10: "Suspected 4 cm right renal solid mass is present which is worrisome for neoplastic lesion.Contrast enhanced CT/ MRI or renal ultrasound would be recommended. 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 No fracture or dis location. Mild lateral subluxation of the tibia on the femur." Recommendations - Will switch to Rocephin from Zosyn and continue with Vancomycin. - Blood cultures ordered. Follow up with results. Will adjust antibiotics as appropriate. - Monitor WBC and fever trends - Supportive care Case discussed with Ashly Bustos
[2023-09-11] MEDS: lisinopriL 20 MG TAB PO SCH ×2 (09:40→19:55)
[2023-09-11] MEDS: HYDROCODONE/APAP 5/325 MG TAB PO PRN (13:07)
[2023-09-11] MEDS ORDERED: LIDOCAINE 4% PATCH TOP ONE (13:41)
[2023-09-11] MEDS: ENOXAPARIN 40 MG/0.4 ML SQ SCH (17:10)
[2023-09-11] MEDS ORDERED: VANCOMYCIN 1.5 GM in NA CHLORIDE 0.9% 500 ML IVPB SCH ×2 (18:00→21:00)
[2023-09-11] MEDS: ATORVASTATIN 40 MG TAB PO SCH (19:54)
[2023-09-12] MEDS: PANTOPRAZOLE 40MG TABLET PO SCH (07:11)
[2023-09-12] MEDS: CEFTRIAXONE 1,000 MG in NA CHLORIDE 0.9% 50 ML IVPB SCH (07:11)
[2023-09-12] MEDS: AMLODIPINE 5 MG TAB PO SCH ×2 (07:16→19:49)
[2023-09-12] MEDS: lisinopriL 20 MG TAB PO SCH ×2 (08:00→19:49)
[2023-09-12] MEDS: LIDOCAINE 4% PATCH TOP SCH (08:10)
[2023-09-12] MEDS: CLOPIDOGREL 75 MG TABLET PO SCH (08:11)
[2023-09-12] MEDS: GABAPENTIN 100 MG CAP PO SCH ×2 (08:11→19:49)
[2023-09-12] MEDS: ASPIRIN EC 81 MG TAB PO SCH (08:13)
[2023-09-12] MEDS: MAGNESIUM OXIDE 400 MG TAB PO SCH ×2 (08:14→19:49)
[2023-09-12 09:25] LABS: Absolute Lymphocytes (CBC) 0.6 K/uL (0.7-4.9); Hematocrit 42.2 % (39.6-49.0); Lymphocytes % 5.1 % (15.3-44.8); MCV 85.7 fL (80-100); MPV 7.7 fL (7.6-11.3); Platelets 279 thou/uL (152-406); RBC Red Blood Cell Count 4.92 M/uL (4.33-5.43)
--- NOTE | 2023-09-12 09:28 | P.PN ---
Date of Service: 09/12/23 Reason for Consult: severe leukocytosis Subjective: Physical Examination Temp Pulse Resp BP Pulse Ox 98.8 F 108 H 19 140/67 93 09/12/23 08:00 09/12/23 08:00 09/12/23 08:00 09/12/23 08:00 09/12/23 08:00 General: Alert, In no apparent distress, Oriented x3 HEENT: Atraumatic, Normocephalic, Mucous membr. moist/pink Neck: Supple, JVD not distended Respiratory: Clear to auscultation bilaterally, Normal air movement Cardiovascular: No edema, Normal S1 S2 Gastrointestinal: Normal bowel sounds, Soft and benign, No tenderness Musculoskeletal: Other (moves all extremities. Pain left knee which he reports as chronic. ) Integumentary: No rashes, No breakdown, No significant lesion Neurological: Normal speech, Normal tone, Normal affect Laboratory Data - Reviewed Microbiology Data - Reviewed Imagings Data: - Reviewed Medications List: Reviewed Assessment and Plan Problem List Leukocytosis Diabetes Mellitus Hypertension Recent CVA Colon Cancer Prostate Cancer Leukocytosis, Fever - Leukocytosis improving, now 12.4 - Afebrile 48 hours - CRP 7 -> 168 -> 160 - Urine culture 09/07: Mixed emily ; colony count <10,000 CFU/mL - Blood cultures 09/11: Pending - Previously on Zosyn which was switched to Rocephin on 09/12 - Currently on Rocephin and Vancomycin - Procal WNL Imaging: - XR Chest 09/09: "FINDINGS: The lungs appear clear of acute infiltrate. The heart is normal size. IMPRESSION: No acute abnormalities displayed." - CT Chest abdomen pelvis wo contrast 09/10: "Suspected 4 cm right renal solid mass is present which is worrisome for neoplastic lesion.Contrast enhanced CT/ MRI or renal ultrasound would be recommended. 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 No fracture or dislocation. Mild lateral subluxation of the tibia on the femur." Recommendations - Continue Rocephin. Discontinue Vancomycin. Leukocytosis improving, afebrile. - Follow up with blood culture results. Will adjust antibiotics as appropriate. - Monitor WBC and fever trends - Supportive care Case discussed with Ashly Bustos
[2023-09-12] MEDS: ENOXAPARIN 40 MG/0.4 ML SQ SCH (16:43)
--- NOTE | 2023-09-12 18:08 | EKG ---
Test Date: 2023-09-10 Test Time: 16:02:16 Computer Hardware Engineer: AKIKO MEASUREMENT RESULTS: Intervals: Rate: 75 WA: 158 QRSD: 78 QT: 408 QTc: 455 Waggoner: P: 42 WA: 158 QRS: -13 T: 30 INTERPRETIVE STATEMENTS: Normal sinus rhythm Inferior infarct, age undetermined Anterolateral infarct, age undetermined Abnormal ECG Compared to ECG 04/15/2021 14:00:47 Myocardial infarct finding now present Electronically Signed On 09-12-23 18:04:25 CDT by Indra Harrison
[2023-09-12] MEDS: ATORVASTATIN 40 MG TAB PO SCH (19:49)
--- NOTE | 2023-09-12 20:44 | PN ---
Date of Progress Note: 09/12/2023 Time Of Service: 1:35 p.m. Subjective: Mr. Jasmine is sitting in bed. 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 He is afebrile and does not have any cough, any c hest pain, any urinary urgency or frequency. It is noted earlier the patient did have significant el evation in white blood cell count, which has now improved from 27,000 on the to 12,000 today aft er multiple antibiotics and with input by ID. His neutrophils improved from 89.4 to 83.3, and his pr ocalcitonin on the was normal at less than 0.05. Lactic acid normal at 1.3 and C-reactive prote in today are stable. On the , it was 168 and today 160, and that elevated from 7.0 on 09/09/2023 . He did have negative rheumatoid factor and test done. He was seen by the infectious disease servi ce, Dr. Mccurdy and he did have Rocephin put on board. Vancomycin was discontinued. Jeremy chavira was noted to be afebrile and blood culture results are pending and they note they will adjust anti biotics appropriately. It was noted, patient's chest is clear and the chest, abdomen, and pelvis CT scan did show a 4 cm right renal mass, which is worrisome for neoplasm as the ultrasound did show cisco t. But no evidence of any area of infection identified. Review of Systems: Does have some myalgias, arthralgias. No rash, headache, weight change. No psychiatric issues or ga strointestinal issues or genitourinary issues. Physical Examination: Vital Signs: Blood pressure 140/67, pulse from 99 to 108, respiratory rate 18, temperature 98.8, oxy gen saturation 93%. General: Mr. Jasmine is resting in bed. He is in no acute distress. HEENT: He is normocephalic, atraumatic. Sclerae anicteric. Oropharynx pink, moist. Neck: Supple. Chest: Clear. Neurological: Alert and oriented to person, place, situation. Follows commands appropriately. In t erms of cranial nerves, no focal deficits with cranial nerves. He does have residual left upper and lower extremities from his right subcortical stroke and he has the circumducted gait on the left. Laboratory Studies: As noted above. X-ray/imaging: As noted above. Medications: His medication regimen includes aspirin 81 mg daily, Norvasc 5 mg twice daily, Gordon 5/ 325 every 6 hours as needed, Tylenol 650 mg every 6 hours as needed, Lipitor 40 mg at bedtime, Roceph in 1 g daily, Plavix 75 mg daily, Lovenox 40 mg subcutaneously daily, gabapentin 100 mg twice daily. His lactulose 10 g twice daily as needed, lidocaine patches 2 daily as needed, Prinivil 20 mg twice daily, magnesium oxide 400 mg twice daily, Zofran 4 mg every 4 hours as needed for nausea, Protonix 4 0 mg daily, Senokot S 2 at bedtime, Ultram 50 mg every 6 hours. Current Functional Status: With occupational therapy, the patient did have 2 incontinent episodes re quiring minimum assist for lower body dressing twice. Kem-mp-pajva transfers, was placed on the elev ated toilet commode seat, unable to clean his buttocks with limited space to wipe. He did engage in wheelchair pushups with rest breaks due to fatigue. Continue to improve his strength, lower body antonio ssing, and his standing balance to continue to improve. With physical therapy, supine to sit transfe rs done independently and sit to stand transfers with minimum assistance. Hip abduction and adductio n exercises, pillow squeezes were done. With speech therapy, he used convergent thinking with 90% ac curacy with moderate verbal cues. He recalled 2 of 4 unrelated items after 5 minutes and 3 of 4 afte r 7 minutes with associated cues. Progress Towards Rehabilitation Goals: Mr. Jasmine is making fair progress to his rehabilitation g oals of becoming independent with upper and lower body dressing, transferring, toileting, ambulated s teadily despite his stroke with a rolling walker, up and down 10 steps with modified independence and performing cognitive functioning independently. Assessment: Mr. Jasmine is an 83-year-old patient with a left-sided paresis after his subcortical stroke in which he is improving fairly well. He did have a very elevated C-reactive protein and whit e count, which is now improving. He is on multiple antibiotics. Rocephin is included and is improvi ng. Has not had a fever since. Does have osteoarthritis of the left knee, diabetes, hypertension, d yslipidemia. Plan: 1.Continue with physical, occupational, and speech therapy for 3.5 hours, 5/7 days. 2.Continue all comorbid condition medications including multiple antibiotics per Infectious Disease, Norvasc, Prinivil for hypertension. Aspirin and Plavix for stroke risk reduction, Lovenox for DVT p rophylaxis, Lipitor for dyslipidemia, Senokot S for constipation, Protonix for GE reflux. Comorbidities That Continue To Impact Rehabilitation Process: Patient does require IV antibiotics cu rrently, but he is doing well and will be switched likely to oral antibiotics within next 2-3 days. MEI/CHAR Voice ID: [id number] Report ID: [id number]
[2023-09-12] MEDS: GUAIFENESIN 600 MG SA TAB PO PRN (23:06)
[2023-09-13] MEDS: CEFTRIAXONE 1,000 MG in NA CHLORIDE 0.9% 50 ML IVPB SCH (07:25)
[2023-09-13] MEDS: PANTOPRAZOLE 40MG TABLET PO SCH (07:25)
[2023-09-13] MEDS: LIDOCAINE 4% PATCH TOP SCH (07:39)
[2023-09-13] MEDS: GABAPENTIN 100 MG CAP PO SCH ×2 (07:40→19:52)
[2023-09-13] MEDS: CLOPIDOGREL 75 MG TABLET PO SCH (07:40)
[2023-09-13] MEDS: MAGNESIUM OXIDE 400 MG TAB PO SCH ×2 (07:40→19:51)
[2023-09-13] MEDS: ASPIRIN EC 81 MG TAB PO SCH (07:40)
[2023-09-13] MEDS: lisinopriL 20 MG TAB PO SCH ×2 (08:00→19:51)
--- NOTE | 2023-09-13 08:17 | P.PN ---
Date of Service: 09/13/23 Reason for Consult: severe leukocytosis Subjective: Patient working with physical therapy. In no apparent distress, breathing comfortably on room air. He denies any new or worsening complaints at this time. Physical Examination Temp Pulse Resp BP Pulse Ox 98.4 F 88 18 118/70 93 09/13/23 08:00 09/13/23 10:33 09/13/23 08:00 09/13/23 10:33 09/13/23 08:00 General: Alert, In no apparent distress, Oriented x3 HEENT: Atraumatic, Normocephalic, Mucous membr. moist/pink Neck: Supple, JVD not distended Respiratory: Clear to auscultation bilaterally, Normal air movement Cardiovascular: No edema, Normal S1 S2 Gastrointestinal: Normal bowel sounds, Soft and benign, No tenderness Musculoskeletal: Moves all extremities. Left knee pain (chronic) Integumentary: No rashes, No breakdown, No significant lesion. Right forearm cyst (patient states has been present for 10+ years) Neurological: Normal speech, Normal tone, Normal affect Laboratory Data - Reviewed Microbiology Data - Reviewed Imagings Data: - Reviewed Medications List: Acetaminophen (Acetaminophen 325 Mg Tablet) 650 mg PO Q6H PRN PRN Reason: TEMP > 101' F Last Admin: 09/10/23 12:18 Dose: 650 mg Hydrocodone Bitart/Acetaminophen (Hydrocodone/Apap 5/325 Mg Tab) 1 tab PO Q6H PRN PRN Reason: Pain scale 8-10 (Severe) Last Admin: 09/11/23 13:07 Dose: 1 tab Amlodipine Besylate (Amlodipine 5 Mg Tab) 5 mg PO BID COUNT INCLUDES THE [facility] Last Admin: 09/12/23 19:49 Dose: 5 mg Aspirin (Aspirin Ec 81 Mg Tab) 81 mg PO DAILY COUNT INCLUDES THE [facility] Last Admin: 09/13/23 07:40 Dose: 81 mg Atorvastatin Calcium (Atorvastatin 40 Mg Tab) 40 mg PO BEDTIME COUNT INCLUDES THE [facility] Last Admin: 09/12/23 19:49 Dose: 40 mg Clopidogrel Bisulfate (Clopidogrel 75 Mg Tablet) 75 mg PO DAILY COUNT INCLUDES THE [facility] Last Admin: 09/13/23 07:40 Dose: 75 mg Dextrose (D10w 250 Ml Bag) 125 ml IV PRN PRN; Protocol PRN Reason: HYPOGLYCEMIA Enoxaparin Sodium (Enoxaparin 40 Mg/0.4 Ml) 40 mg SQ DAILY 5 PM COUNT INCLUDES THE [facility] Last Admin: 09/12/23 16:43 Dose: 40 mg Gabapentin (Gabapentin 100 Mg Cap) 100 mg PO BID COUNT INCLUDES THE [facility] Last Admin: 09/13/23 07:40 Dose: 100 mg Glucagon (Glucagon 1 Mg/Vial) 1 mg IM 1X PRN; Protocol PRN Reason: HYPOGLYCEMIA Guaifenesin (Guaifenesin 600 Mg Sa Tab) 600 mg PO BID PRN PRN Reason: COUGH Last Admin: 09/12/23 23:06 Dose: 600 mg Ceftriaxone Sodium 1,000 mg/ (Sodium Chloride) 50 mls @ 100 mls/hr IVPB DAILY COUNT INCLUDES THE [facility] Last Admin: 09/13/23 07:25 Dose: 50 mls Lactulose (Lactulose 20 Gm/30 Ml Ucup) 10 gm PO BID PRN PRN Reason: CONSTIPATION Lidocaine (Lidocaine 4% Patch) 2 patch TOP DAILY COUNT INCLUDES THE [facility] Last Admin: 09/13/23 07:39 Dose: 2 patch Lisinopril (Lisinopril 20 Mg Tab) 20 mg PO BID COUNT INCLUDES THE [facility] Last Admin: 09/12/23 19:49 Dose: 20 mg Magnesium Oxide (Magnesium Oxide 400 Mg Tab) 400 mg PO BID COUNT INCLUDES THE [facility] Last Admin: 09/13/23 07:40 Dose: 400 mg Ondansetron HCl (Ondansetron 4 Mg (Odt) Tab) 4 mg PO Q6H PRN PRN Reason: NAUSEA / VOMITING Last Admin: 09/10/23 17:09 Dose: 4 mg Pantoprazole Sodium (Pantoprazole 40mg Tablet) 40 mg PO ACB COUNT INCLUDES THE [facility]; Protocol Last Admin: 09/13/23 07:25 Dose: 40 mg Senna/Docusate Sodium (Docusate Na/Senna Conc 1 Tab) 2 tab PO BEDTIME PRN PRN Reason: CONSTIPATION Tramadol HCl (Tramadol Hcl 50 Mg Tab) 50 mg PO Q6H PRN PRN Reason: Pain scale 5-7 (Moderate) Last Admin: 09/11/23 08:09 Dose: 50 mg Assessment and Plan Problem List Leukocytosis Diabetes Mellitus Hypertension Recent CVA Colon Cancer Prostate Cancer Leukocytosis, Fever - Leukocytosis improving, now 12.4 - Afebrile 48 hours - CRP 7 -> 168 -> 160 - Procal WNL - Urine culture 09/07: Mixed emily ; colony count <10,000 CFU/mL - Blood cultures 09/11: No growth 24 hours. - Previously on Zosyn which was switched to Rocephin on 09/12. Vancomycin (09/10-09/12) - Currently on Rocephin (started 09/12) Imaging: - XR Chest 09/09: "FINDINGS: The lungs appear clear of acute infiltrate. The heart is normal size. IMPRESSION: No acute abnormalities displayed." - CT Chest abdomen pelvis wo contrast 09/10: "Suspected 4 cm right renal solid mass is present which is worrisome for neoplastic lesion.Contrast enhanced CT/ MRI or renal ultrasound would be recommended. 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 No fracture or dislocation. Mild lateral subluxation of the tibia on the femur." Recommendations - Continue Rocephin for now. Pending CBC for today. If within normal limits, consider discontinuing Rocephin. Remains afebrile. Will reevaluate patient tomorrow. - Follow up with final blood culture results. - Monitor WBC and fever trends - Supportive care Case discussed with Ashly Bustos
[2023-09-13] MEDS: AMLODIPINE 5 MG TAB PO SCH ×2 (08:43→19:52)
[2023-09-13] MEDS: GUAIFENESIN 600 MG SA TAB PO PRN (09:06)
[2023-09-13 12:50] LABS: Absolute Lymphocytes (CBC) 0.6 K/uL (0.7-4.9); Hematocrit 42.9 % (39.6-49.0); Lymphocytes % 8.1 % (15.3-44.8); MPV 7.4 fL (7.6-11.3); Platelets 299 thou/uL (152-406); RBC Red Blood Cell Count 5.04 M/uL (4.33-5.43)
[2023-09-13 13:07] LABS: Potassium 3.6 mEq/L (3.5-5.1)
[2023-09-13] MEDS: ENOXAPARIN 40 MG/0.4 ML SQ SCH (16:49)
[2023-09-13] MEDS: ATORVASTATIN 40 MG TAB PO SCH (19:52)
[2023-09-13] MEDS: FLUTICASONE 50MCG NASAL SPRAY NAS SCH (19:53)
--- NOTE | 2023-09-13 21:42 | PN ---
Subjective: Mr. Jasmine is doing better today. He has not had a repeat fever. He is followed by ID Service as he has white blood cell count spike. White blood cell count today is normal at 7.3; at highest, it was 27 on 09/10. His neutrophils have come down to 73.8 from a high of 89.4. His chemi stries today show slightly low sodium and prealbumin low at 11.7, but potassium, chloride, carbon monserrat xide, BUN, creatinine all normal. Glucose ranged from 124 to 141, and calcium 8.6. Review of Systems: He does deny any recent fevers or chills. No significant myalgias, arthralgias. No rash. He does h ave a stroke affecting the right subcortical region with left-sided weakness, from which he is improv ing. Physical Examination: Vital Signs: Blood pressure 118/70, pulse 88, respiratory rate of 16, temperature 98.4, oxygen satur ation 93%. He had orthostatic blood pressures, which were negative. Neurologic: He does have some improvement in the left-sided weakness from his right subcortical stro ke. Coordination is improving. Balance and gait also improving. Laboratory Studies: As noted above. X-ray imaging as noted. Current Medications: His medications have been reviewed and remained unchanged. He is still continu ing with the Rocephin. ID is following him. He is improving very well again and the white blood elvis l count had come back to normal. He does have DVT prophylaxis with aspirin, Plavix, and Lovenox as w ell as for stroke risk reduction. Current Functional Status: Mr. Jasmine was able to ambulate 10 feet with a rolling walker and salty dby assistance and mobilized in wheelchair 250 feet with standby assistance. He did sruidl-vs-duy tr ansfers independently, [id number] with minimum assistance, stand and pivot transfers with minimum a ssistance. Regarding his occupational therapy, he did tolerate 10 minutes of aerobic bilateral upper extremity exercises in the wheelchair with 1 rest break, engaged in dynamic standing activities at t he table, reaching outside of this closed zone and did well. He did stand for about 6 minutes again with rest breaks. With speech, he recalled 3 of 4 unrelated pictures after 5 minutes. He needed cue s to recall internal memory strategies during tasks. He did convergent thinking skills with 90% accu racy for abstract concepts. Progress Towards Rehabilitation Goals: Mr. Jasmine is making fair progress. He is somewhat slow i n his ability to ambulate, but he mobilizes the wheelchair very well. He is transferring much better and performing well with his speech in terms of regaining his cognitive functioning and ability to p rocess information, and intelligible in terms of his speech. Assessment And Plan: Mr. Jasmine is an 83-year-old patient in the rehabilitation unit with a right subcortical stroke and some left-sided deficits, for which he is making fair overall recovery and im provement. He has now improved white blood cell count. He is taking IV antibiotics, which is manage d by Renal Service. He does have osteoarthritis in left knee, diabetes, hypertension, dyslipidemia. Plan: 1.Continue with physical, occupational, and speech therapy for 3.5 hours, 5 to 7 days. 2.His antibiotics are managed by Infectious Disease team. 3.We will continue with medications for hypertension, including Prinivil and Norvasc. 4.Aspirin and Plavix for stroke risk reduction. 5.Lovenox for DVT risk reduction. 6.Lipitor for dyslipidemia. Continue Protonix and Senokot S. Comorbid Conditions That Continue To Impact His Rehabilitation: As noted, he requires IV antibiotics right now, but that is improving significantly as he has defervesced. White blood cell count is now normal. He remains afebrile and ID team is following him. MEI/CHAR Voice ID: [id number] Report ID: [id number]
[2023-09-14] MEDS: GUAIFENESIN 600 MG SA TAB PO PRN (03:54)
[2023-09-14] MEDS: PANTOPRAZOLE 40MG TABLET PO SCH (06:56)
[2023-09-14] MEDS: CEFTRIAXONE 1,000 MG in NA CHLORIDE 0.9% 50 ML IVPB SCH (06:56)
[2023-09-14] MEDS: AMLODIPINE 5 MG TAB PO SCH ×2 (07:00→20:22)
[2023-09-14] MEDS: lisinopriL 20 MG TAB PO SCH ×2 (08:00→20:22)
[2023-09-14] MEDS: CLOPIDOGREL 75 MG TABLET PO SCH (09:04)
[2023-09-14] MEDS: GABAPENTIN 100 MG CAP PO SCH ×2 (09:05→20:23)
[2023-09-14] MEDS: ASPIRIN EC 81 MG TAB PO SCH (09:05)
[2023-09-14] MEDS: MAGNESIUM OXIDE 400 MG TAB PO SCH ×2 (09:05→20:00)
[2023-09-14] MEDS: LIDOCAINE 4% PATCH TOP SCH (09:33)
[2023-09-14] MEDS: FLUTICASONE 50MCG NASAL SPRAY NAS SCH ×2 (09:34→20:23)
--- NOTE | 2023-09-14 10:55 | P.PN ---
Date of Service: 09/14/23 Reason for Consult: severe leukocytosis Subjective: Improving. In no apparent distress. No acute events reported overnight. Denies any new or worsening complaints. Physical Examination Temp Pulse Resp BP Pulse Ox 97.4 F 83 18 116/63 94 09/14/23 07:10 09/14/23 09:05 09/14/23 07:10 09/14/23 09:05 09/14/23 07:10 General: Alert, In no apparent distress, Oriented x3 HEENT: Atraumatic, Normocephalic, Mucous membr. moist/pink Neck: Supple, JVD not distended Respiratory: Clear to auscultation bilaterally, Normal air movement Cardiovascular: No edema, Normal S1 S2 Gastrointestinal: Normal bowel sounds, Soft and benign, No tenderness Musculoskeletal: Moves all extremities. Left knee pain (chronic) Integumentary: No rashes, No breakdown, No significant lesion. Right forearm cyst (patient states has been present for 10+ years) Neurological: Normal speech, Normal tone, Normal affect Laboratory Data - Reviewed Microbiology Data - Reviewed Imagings Data: - Reviewed Medications List: Reviewed Assessment and Plan Problem List Leukocytosis Diabetes Mellitus Hypertension Recent CVA Colon Cancer Prostate Cancer Leukocytosis, Fever - Resolved - Leukocytosis resolved (WBC 7.3) - Afebrile 48 hours - Urine culture 09/07: Mixed emily ; colony count <10,000 CFU/mL - Blood cultures 09/11: No growth 24 hours. - Previously on Zosyn which was switched to Rocephin on 09/12. Vancomycin (09/10-09/12) - Currently on Rocephin (started 09/12) Imaging: - XR Chest 09/09: "FINDINGS: The lungs appear clear of acute infiltrate. The heart is normal size. IMPRESSION: No acute abnormalities displayed." - CT Chest abdomen pelvis wo contrast 09/10: "Suspected 4 cm right renal solid mass is present which is worrisome for neoplastic lesion.Contrast enhanced CT/ MRI or renal ultrasound would be recommended. 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 No fracture or disloca tion. Mild lateral subluxation of the tibia on the femur." Recommendations On day 5 of antibiotic therapy. He remains afebrile since 09/09. No new or worsening complaints. - Discontinue Rocephin - Continue to monitor patient for worsening s/s of infection. - Continue PT, OT and speech therapy 4 cm right renal solid mass worrisome for neoplastic lesion. Recommend Oncology consult and following up with Oncologist as outpatient. Patient has a history of prostate and colon cancer. Case discussed with Ashly Bustos
--- NOTE | 2023-09-14 13:51 | P.RH.PN ---
Estimated Length of Stay: 17 Expected Discharge Date: 09/24/23 Discharge Disposition Plan: Home Family Support: Yes Vital Signs: Last Vital Signs Temp 97.4 F 09/14/23 07:10 Pulse 83 09/14/23 09:05 Resp 18 09/14/23 07:10 BP 116/63 09/14/23 09:05 Pulse Ox 94 09/14/23 07:10 Laboratory: Laboratory Last Values WBC 7.30 thou/uL (4.3-10.9) 09/13/23 12:15 RBC 5.04 M/uL (4.33-5.43) 09/13/23 12:15 Hgb 14.8 g/dL (13.6-17.9) 09/13/23 12:15 Hct 42.9 % (39.6-49.0) 09/13/23 12:15 MCV 85.0 fL (80-100) 09/13/23 12:15 MCH 29.4 pg (27.0-35.0) 09/13/23 12:15 MCHC 34.6 g/dL (32.0-36.0) 09/13/23 12:15 RDW 14.5 % (12.1-15.2) 09/13/23 12:15 Plt Count 299 thou/uL (152-406) 09/13/23 12:15 MPV 7.4 fL (7.6-11.3) L 09/13/23 12:15 Neutrophils % 73.8 % (41.7-73.7) H 09/13/23 12:15 Lymphocytes % 8.1 % (15.3-44.8) L 09/13/23 12:15 Monocytes % 12.9 % (3.3-12.3) H 09/13/23 12:15 Eosinophils % 3.9 % (0-4.4) 09/13/23 12:15 Basophils % 1.3 % (0-1.3) 09/13/23 12:15 Absolute Neutrophils 5.4 K/uL (1.8-8.0) 09/13/23 12:15 Absolute Lymphocytes 0.6 K/uL (0.7-4.9) L 09/13/23 12:15 Absolute Monocytes 0.9 K/uL (0.1-1.3) 09/13/23 12:15 Absolute Eosinophils 0.3 K/uL (0-0.5) 09/13/23 12:15 Absolute Basophils 0.1 K/uL (0-0.5) 09/13/23 12:15 Platelet Estimate Adeq 09/10/23 13:58 Morphology Comment Not seen (NOT SEEN) 09/10/23 13:58 Sodium 135 mEq/L (136-145) L 09/13/23 12:15 Potassium 3.6 mEq/L (3.5-5.1) 09/13/23 12:15 Chloride 106 mEq/L (98-107) 09/13/23 12:15 Carbon Dioxide 22 mEq/L (21-32) 09/13/23 12:15 Anion Gap 10.6 mEq/L (5.0-15.0) 09/13/23 12:15 BUN 14 mg/dL (7-18) 09/13/23 12:15 Creatinine 0.90 mg/dL (0.70-1.30) 09/13/23 12:15 Est GFR (CKD-EPI) 85 ml/min (=/>90) L 09/13/23 12:15 Glucose 141 mg/dL (74-106) H 09/13/23 12:15 POC Glucose 124 mg/dL (65-120) H 09/12/23 11:30 Lactic Acid 1.3 mmol/L (0.4-2.0) 09/10/23 08:11 Calcium 8.6 mg/dL (8.5-10.1) 09/13/23 12:15 Magnesium 2.3 mg/dL (1.6-2.4) 09/10/23 05:20 Lactate Dehydrogenase 146 U/L (87-241) 09/09/23 19:22 C-Reactive Protein 160.00 mg/L (<3.00) H 09/12/23 08:32 Albumin 3.6 g/dL (3.4-5.0) 09/08/23 07:07 Prealbumin 11.7 mg/dL (20-40) L 09/13/23 12:15 Procalcitonin < 0.05 ng/mL (<0.050) 09/09/23 19:22 Urine Color Yellow (Yellow) 09/07/23 22:00 Urine Clarity Clear (Clear) 09/07/23 22:00 Urine pH 5.5 (5.0-7.0) 09/07/23 22:00 Ur Specific [place] 1.028 (1.005-1.030) 09/07/23 22:00 Glucose (UA)(Auto) Negative (Negative) 09/07/23 22:00 Urine Ketones Negative (Negative) 09/07/23 22:00 Urine Blood Negative (Negative) 09/07/23 22:00 Urine Nitrite Negative (Negative) 09/07/23 22:00 Urine Bilirubin Negative (Negative) 09/07/23 22:00 Urine Urobilinogen 1+ (Normal) H 09/07/23 22:00 Ur Leukocyte Esterase Negative [place]/uL (Negative) 09/07/23 22:00 Urine RBC <5 /HPF (None Seen) 09/07/23 22:00 Urine WBC <5 /HPF (<5) 09/07/23 22:00 Ur Squamous Epith Cells <5 /HPF (None Seen) 09/07/23 22:00 Urine Bacteria None seen /HPF (<20) 09/07/23 22:00 Hyaline Casts 0-5 /LPF (None Seen) 09/07/23 22:00 Urine Mucus 1+ /HPF (None Seen) 09/07/23 22:00 Urine Culture Reflexed Not needed 09/07/23 22:00 Urine Total Protein Trace (Negative) H 09/07/23 22:00 Vancomycin Trough Cancelled 09/12/23 20:00 Rheumatoid Factor Neg (NEG) 09/10/23 05:20 Smear Scan Ok (OK) 09/10/23 13:58 Weight: 198 lb Wound Present: No Closed Surgical Incision Present: No Negative Pressure Wound Therapy Present: No Physician Update: Prealbumin is very low. Incontinent of bowel and bladder, possible related to prostate cancer. Rocephin to be discontinued. His WBC is now normal at 7.3. He lives in a shed. Met 2/4 speech goals. 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 Walked 250' with RW with CGA, and pushing WC 250' with supervision. Summary: Patient's care plan and senior care goals have been reviewed and revised as necessary. Please see the Rehabilitation Signature page for all necessary signatures.
[2023-09-14] MEDS: ENOXAPARIN 40 MG/0.4 ML SQ SCH (16:46)
[2023-09-14] MEDS: ATORVASTATIN 40 MG TAB PO SCH (20:22)
[2023-09-15] MEDS: PANTOPRAZOLE 40MG TABLET PO SCH (08:05)
[2023-09-15] MEDS: FLUTICASONE 50MCG NASAL SPRAY NAS SCH ×2 (08:05→20:47)
[2023-09-15] MEDS: GABAPENTIN 100 MG CAP PO SCH ×2 (08:06→20:48)
[2023-09-15] MEDS: AMLODIPINE 5 MG TAB PO SCH ×2 (08:06→20:47)
[2023-09-15] MEDS: CLOPIDOGREL 75 MG TABLET PO SCH (08:06)
[2023-09-15] MEDS: ASPIRIN EC 81 MG TAB PO SCH (08:06)
[2023-09-15] MEDS: LIDOCAINE 4% PATCH TOP SCH (08:07)
[2023-09-15] MEDS: MAGNESIUM OXIDE 400 MG TAB PO SCH ×2 (08:07→20:47)
[2023-09-15] MEDS: lisinopriL 20 MG TAB PO SCH ×2 (11:01→20:47)
[2023-09-15] MEDS: ENOXAPARIN 40 MG/0.4 ML SQ SCH (17:21)
[2023-09-15] MEDS: ATORVASTATIN 40 MG TAB PO SCH (20:47)
[2023-09-15] MEDS: DOCUSATE NA/SENNA CONC 1 TAB PO PRN (20:47)
[2023-09-15] MEDS: GUAIFENESIN 600 MG SA TAB PO PRN (20:47)
[2023-09-16] MEDS: LIDOCAINE 4% PATCH TOP SCH (08:20)
[2023-09-16] MEDS: AMLODIPINE 5 MG TAB PO SCH ×2 (08:20→19:13)
[2023-09-16] MEDS: FLUTICASONE 50MCG NASAL SPRAY NAS SCH ×2 (08:20→19:12)
[2023-09-16] MEDS: CLOPIDOGREL 75 MG TABLET PO SCH (08:21)
[2023-09-16] MEDS: lisinopriL 20 MG TAB PO SCH ×2 (08:21→19:13)
[2023-09-16] MEDS: MAGNESIUM OXIDE 400 MG TAB PO SCH ×2 (08:21→19:12)
[2023-09-16] MEDS: ASPIRIN EC 81 MG TAB PO SCH (08:22)
[2023-09-16] MEDS: GABAPENTIN 100 MG CAP PO SCH ×2 (08:22→19:13)
[2023-09-16] MEDS: PANTOPRAZOLE 40MG TABLET PO SCH (08:23)
[2023-09-16] MEDS: ENOXAPARIN 40 MG/0.4 ML SQ SCH (17:09)
[2023-09-16] MEDS: ATORVASTATIN 40 MG TAB PO SCH (19:12)
[2023-09-17] MEDS: lisinopriL 20 MG TAB PO SCH ×2 (07:17→19:33)
[2023-09-17] MEDS: PANTOPRAZOLE 40MG TABLET PO SCH (07:17)
[2023-09-17] MEDS: GABAPENTIN 100 MG CAP PO SCH ×2 (07:18→19:32)
[2023-09-17] MEDS: CLOPIDOGREL 75 MG TABLET PO SCH (07:18)
[2023-09-17] MEDS: MAGNESIUM OXIDE 400 MG TAB PO SCH ×2 (07:19→19:33)
[2023-09-17] MEDS: FLUTICASONE 50MCG NASAL SPRAY NAS SCH ×2 (07:19→19:32)
[2023-09-17] MEDS: ASPIRIN EC 81 MG TAB PO SCH (07:20)
[2023-09-17] MEDS: LIDOCAINE 4% PATCH TOP SCH (07:21)
[2023-09-17] MEDS: AMLODIPINE 5 MG TAB PO SCH ×2 (07:22→19:32)
--- NOTE | 2023-09-17 08:46 | P.PN ---
Date of Service: 09/17/23 Reason for Consult: severe leukocytosis Subjective: Patient seen and examined at bedside. In no apparent distress, breathing comfortably on room air. He denies any shortness of breath, chest pain or palpitations. Denies any fever, chills, headache. No abdominal pain. No diarrhea. Reports mild nausea. No acute events reported over the weekend. Physical Examination Temp Pulse Resp BP Pulse Ox 97.4 F 106 H 16 163/79 H 95 09/17/23 06:53 09/17/23 07:22 09/17/23 06:53 09/17/23 07:22 09/17/23 06:53 General: Alert, In no apparent distress, Oriented x3 HEENT: Atraumatic, Normocephalic, Mucous membr. moist/pink Neck: Supple, JVD not distended Respiratory: Clear to auscultation bilaterally, Normal air movement Cardiovascular: No edema, Normal S1 S2 Gastrointestinal: Normal bowel sounds, Soft and benign, No tenderness Musculoskeletal: Moves all extremities. Left knee pain (chronic) Integumentary: No rashes, No breakdown, No significant lesion. Right forearm cyst (patient states has been present for 10+ years) Neurological: Normal speech, Normal tone, Normal affect Laboratory Data - Reviewed Microbiology Data - Reviewed Imagings Data: - Reviewed Medications List: Reviewed Acetaminophen (Acetaminophen 325 Mg Tablet) 650 mg PO Q6H PRN PRN Reason: TEMP > 101' F Last Admin: 09/10/23 12:18 Dose: 650 mg Hydrocodone Bitart/Acetaminophen (Hydrocodone/Apap 5/325 Mg Tab) 1 tab PO Q6H PRN PRN Reason: Pain scale 8-10 (Severe) Last Admin: 09/11/23 13:07 Dose: 1 tab Amlodipine Besylate (Amlodipine 5 Mg Tab) 5 mg PO BID [facility] Last Admin: 09/17/23 07:22 Dose: 5 mg Aspirin (Aspirin Ec 81 Mg Tab) 81 mg PO DAILY [facility] Last Admin: 09/17/23 07:20 Dose: 81 mg Atorvastatin Calcium (Atorvastatin 40 Mg Tab) 40 mg PO BEDTIME [facility] Last Admin: 09/16/23 19:12 Dose: 40 mg Clopidogrel Bisulfate (Clopidogrel 75 Mg Tablet) 75 mg PO DAILY [facility] Last Admin: 09/17/23 07:18 Dose: 75 mg Dextrose (D10w 250 Ml Bag) 125 ml IV PRN PRN; Protocol PRN Reason: HYPOGLYCEMIA Enoxaparin Sodium (Enoxaparin 40 Mg/0.4 Ml) 40 mg SQ DAILY 5 PM [facility] Last Admin: 09/16/23 17:09 Dose: 40 mg Fluticasone Propionate (Fluticasone 50mcg Nasal [place]) 1 sprays GABRIEL BID [facility] Last Admin: 09/17/23 07:19 Dose: 1 spr Gabapentin (Gabapentin 100 Mg Cap) 100 mg PO BID [facility] Last Admin: 09/17/23 07:18 Dose: 100 m Glucagon (Glucagon 1 Mg/Vial) 1 mg IM 1X PRN; Protocol PRN Reason: HYPOGLYCEMIA Guaifenesin (Guaifenesin 600 Mg Sa Tab) 600 mg PO BID PRN PRN Reason: COUGH Last Admin: 09/15/23 20:47 Dose: 600 mg Lactulose (Lactulose 20 Gm/30 Ml Ucup) 10 gm PO BID PRN PRN Reason: CONSTIPATION Lidocaine (Lidocaine 4% Patch) 2 patch TOP DAILY [facility] Last Admin: 09/17/23 07:21 Dose: 2 patch Lisinopril (Lisinopril 20 Mg Tab) 20 mg PO BID [facility] Last Admin: 09/17/23 07:17 Dose: 20 mg Magnesium Oxide (Magnesium Oxide 400 Mg Tab) 400 mg PO BID [facility] Last Admin: 09/17/23 07:19 Dose: 400 mg Ondansetron HCl (Ondansetron 4 Mg (Odt) Tab) 4 mg PO Q6H PRN PRN Reason: NAUSEA / VOMITING Last Admin: 09/10/23 17:09 Dose: 4 mg Pantoprazole Sodium (Pantoprazole 40mg Tablet) 40 mg PO ACB [facility]; Protocol Last Admin: 09/17/23 07:17 Dose: 40 mg Senna/Docusate Sodium (Docusate Na/Senna Conc 1 Tab) 2 tab PO BEDTIME PRN PRN Reason: CONSTIPATION Last Admin: 09/15/23 20:47 Dose: 2 tab Tramadol HCl (Tramadol Hcl 50 Mg Tab) 50 mg PO Q6H PRN PRN Reason: Pain scale 5-7 (Moderate) Last Admin: 09/11/23 08:09 Dose: 50 mg Assessment and Plan Problem List Leukocytosis Diabetes Mellitus Hypertension Recent CVA Colon Cancer Prostate Cancer Leukocytosis, Fever - Resolved - Urine culture 09/07: Mixed emily ; colony count <10,000 CFU/mL - Blood cultures 09/11: No growth 24 hours. - Previously on Zosyn which was switched to Rocephin on 09/12. Vancomycin (09/10-09/12) - Off antibiotics since 09/15 - Tested positive for Covid on 09/16. Denies any cough, shortness of breath, chest pain, fevers, headache, or congestion. - Leukocytosis resolved. Remains afebrile. Imaging: - XR Chest 09/09: "FINDINGS: The lungs appear clear of acute infiltrate. The heart is normal size. IMPRESSION: No acute abnormalities displayed." - CT Chest abdomen pelvis wo contrast 09/10: "Suspected 4 cm right renal solid mass is present which is worrisome for neoplastic lesion.Contrast enhanced CT/ MRI or renal ultrasound would be recommended. 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 No fracture or dislocation. Mild lateral subluxation of the tibia on the femur." Recommendations -Off antibiotic since 09/15. Remains afebrile. -Continue with supportive care. - Supplemental nutrition -4 cm right renal solid mass worrisome for neoplastic lesion. Recommend following up with oncology as outpatient for further workup. Patient has a history of prostate and colon cancer, concern for metastasis. Continue PT, OT and speech therapy Case discussed with Ashly Bustos
[2023-09-17] MEDS: ENOXAPARIN 40 MG/0.4 ML SQ SCH (17:25)
[2023-09-17] MEDS: ATORVASTATIN 40 MG TAB PO SCH (19:33)
[2023-09-17] MEDS ORDERED: [UNRECOGNIZED DRUG - REMARK] XX PRN (21:37)
--- NOTE | 2023-09-17 23:24 | PN ---
Time Of Service: 1:50 p.m. Subjective: Mr. Jasmine is doing very well. He has no new complaints. Resting in his chair, look ing out the window in between therapy sessions and feeling very good. Review of Systems: No myalgias, arthralgias, rash, headache, weight change. No psychiatric issues. He is doing well as noted. Left-sided weakness is improving daily with therapy. Physical Examination: Vital Signs: Blood pressure 123/62, pulse 63, respiratory rate 18, temperature 97.4, oxygen saturati on 93%. General: Mr. Jasmine is resting comfortably. He does have some incoordination noted. Difficulty with his balance, gait, and coordination from his right subcortical stroke, mostly affecting his left side. Laboratory Studies: Yesterday, white blood cell count 7.3, hemoglobin 14.8, platelets 299. Serology test, he did have a COVID-19 test done yesterday and that test is positive. He will have a chest x- ray done for the morning and will be on Paxlovid. X-ray imaging: Noted no new x-ray imaging. Medications: Medications have been reviewed and remained unchanged, except he will have Paxlovid add ed. Current Functional Status: Today, he did supine to sit transfers independently, sit to stand transfe rs with minimum to contact guard assistance. Because of his COVID-19 positivity, he is doing therapy in the room. In terms of occupational therapy, he was at supervision for supine to sit transfers. Again, he is on droplet isolation in the room with negative pressure. Tolerated standing, lower body dressing, sitting issues without difficulty. Progress Towards Rehabilitation Goals: Mr. Jasmine had a little setback with COVID positivity. He is doing therapy in his room, but was doing very well in terms of his recovery prior to C OVID and being positive with some cough. He will have again chest x-ray and Paxlovid started. Assessment: Mr. Jasmine is an 83-year-old patient in the rehabilitation unit with a right subcorti darlene stroke, left-sided weakness. He has COVID positivity. He did complete some IV antibiotics, is f ollowed by the renal service for white blood cell count and fever. He does have diabetes, hypertensi on, dyslipidemia, and osteoarthritis of left knee. Plan: 1.Continue with physical, occupational, speech therapy for 3.5 hours 5 of 7 days. 2.Continue with treatment of his COVID-19 and systemic infection. 3.Continue with Prinivil and Norvasc for hypertension. Continue with aspirin and Plavix for stroke risk reduction. Continue with Lipitor for dyslipidemia. Continue with Protonix and Senokot-S. Cont inue with treatment. Comorbidities That Continue To Impact His Rehabilitation: Currently, he is COVID-19 positive and silvano uld be treated with isolation in his room. His therapy had to be delayed, and once he is tested nega tive, he will be able to resume ambulation around the [place]intero. MEI/CHAR Voice ID: [id number] Report ID: [id number]
--- NOTE | 2023-09-18 07:09 | RAD REPORT ---
EXAM DESCRIPTION: Anabella Single View09/18/2023 4:45 am CLINICAL HISTORY: Chest pain COMPARISON: August 2023 FINDINGS: The lungs appear clear of acute infiltrate. The heart is normal size. Calcified granuloma left lung IMPRESSION: No acute abnormalities displayed
[2023-09-18] MEDS: FLUTICASONE 50MCG NASAL SPRAY NAS SCH ×2 (07:26→19:16)
[2023-09-18] MEDS: PANTOPRAZOLE 40MG TABLET PO SCH (07:26)
[2023-09-18] MEDS: LIDOCAINE 4% PATCH TOP SCH (07:27)
[2023-09-18] MEDS: CLOPIDOGREL 75 MG TABLET PO SCH (07:27)
[2023-09-18] MEDS: GABAPENTIN 100 MG CAP PO SCH ×2 (07:27→19:17)
[2023-09-18] MEDS: MAGNESIUM OXIDE 400 MG TAB PO SCH ×2 (07:27→19:16)
[2023-09-18] MEDS: ASPIRIN EC 81 MG TAB PO SCH (07:27)
[2023-09-18] MEDS: AMLODIPINE 5 MG TAB PO SCH ×2 (07:28→19:17)
[2023-09-18] MEDS: lisinopriL 20 MG TAB PO SCH ×2 (07:28→19:17)
[2023-09-18] MEDS: NIRMATRELVIR/RITONAVIR TABLET PO SCH ×2 (09:38→19:16)
--- NOTE | 2023-09-18 15:31 | P.PN ---
Date of Service: 09/18/23 Reason for Consult: severe leukocytosis Subjective: Improving Patient sitting up on side of bed eating breakfast. In no apparent distress, in good spirits. Denies any new or worsening complaints at this time. Physical Examination Temp Pulse Resp BP Pulse Ox 97.2 F 101 H 16 143/77 H 97 09/18/23 06:56 09/18/23 07:28 09/18/23 06:56 09/18/23 07:28 09/18/23 06:56 General: Alert, In no apparent distress, Oriented x3 HEENT: Atraumatic, Normocephalic, Mucous membr. moist/pink Neck: Supple, JVD not distended Respiratory: Clear to auscultation bilaterally, Normal air movement Cardiovascular: No edema, Normal S1 S2 Gastrointestinal: Normal bowel sounds, Soft and benign, No tenderness Musculoskeletal: Moves all extremities. Left knee pain (chronic) Integumentary: No rashes, No breakdown, No significant lesion. Large right forearm cyst. Neurological: Normal speech, Normal tone, Normal affect Laboratory Data - Reviewed Microbiology Data - Reviewed Imagings Data: - Reviewed Medications List: Reviewed Assessment and Plan Problem List Leukocytosis Diabetes Mellitus Hypertension Recent CVA Colon Cancer Prostate Cancer Leukocytosis, Fever - Resolved - Urine culture 09/07: Mixed emily ; colony count <10,000 CFU/mL - Blood cultures 09/11: No growth 24 hours. - Previously on Zosyn which was switched to Rocephin on 09/12. Vancomycin (09/10-09/12) - Off antibiotics since 09/15 - Tested positive for Covid on 09/16. Denies any cough, shortness of breath, chest pain, fevers, headache, or congestion. - Leukocytosis resolved. Remains afebrile. Imaging: - XR Chest 09/09: "FINDINGS: The lungs appear clear of acute infiltrate. The heart is normal size. IMPRESSION: No acute abnormalities displayed." - CT Chest abdomen pelvis wo contrast 09/10: "Suspected 4 cm right renal solid mass is present which is worrisome for neoplastic lesion.Contrast enhanced CT/ MRI or renal ultrasound would be recommended. 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 No fracture or dislocation. Mild lateral subluxation of the tibia on the femur." - XR Chest 09/18: "The lungs appear clear of acute infiltrate. The heart is normal size. Calcified granuloma left lung. IMPRESSION: No acute abnormalities displayed" Recommendations -Off antibiotic since 09/15. Remains afebrile. Denies any shortness of breath, cough, chest pain or palpitations. Denies any nausea, vomiting, diarrhea or abdominal pain. -Continue with supportive care. - Supplemental nutrition - Continue PT, OT and speech therapy -4 cm right renal solid mass worrisome for neoplastic lesion. Recommend following up with oncology as outpatient for further workup. Patient has a history of prostate and colon cancer, concern for metastasis. Case discussed with Ashly Bustos
[2023-09-18] MEDS: ENOXAPARIN 40 MG/0.4 ML SQ SCH (17:19)
--- NOTE | 2023-09-18 21:21 | PN ---
Date of Progress Note: 09/18/2023 [id number]-[id number] Progress Note Visit. Time Of Service: 1:45 p.m. Subjective: Mr. Jasmine is resting comfortably in a chair beside his bed. He is doing very well. Has no new complaints. He is being followed by ID Service as well. Review of Systems: He denies any fevers, chills, nausea, vomiting, myalgias, arthralgias, rash. He is looking forward t o his discharge. Physical Examination: Vital Signs: Blood pressure is 143/77, pulse up to 101, respiratory rate 16, temperature 97.2, O2 sa turation 97%. He did have orthostatic blood pressures, no significant abnormalities identified. Neuro: In terms of the patient's stroke deficits, his right subcortical stroke with some left-sided incoordination, weakness, but he is doing very well in terms of his recovery from that. X-ray/imaging: Chest x-ray was done today to evaluate the patient's lungs for residual pneumonia. T he study showed no acute cardiopulmonary abnormalities. Heart of normal size. There is a calcified granuloma noted in the left lung. He is followed by Dr. [facility] and recommendations, he stopped antibiotics ; it was stopped since 4th, he remains afebrile without any worsening symptoms. He does have a right renal mass concerning for neoplasm and he will follow up outpatient. No other recommendations as pe r Infectious Disease. Medications: Medications have been reviewed and noted and remain unchanged. Current Functional Status: Today, Mr. Jasmine has ambulated 50 feet twice with a rolling walker in dependently and supine to sit transfers done independently, sit to stand transfers done with contact guard assistance. It is noted that he can only be in the room because he is positive for COVID-19. In terms of his speech, he worked on breathing skills, short-term memory, alternating attention, and speech intelligibility. He required maximal assistance for alternating attention; moderate assist fo r productive reasoning. He was able to recall 4 of 4 unrelated items after 5 minutes with minimum as sistance. Progress Towards Rehabilitation Goals: Mr. Jasmine is making great progress towards his goals of b ecoming independent to modified independent with upper and lower body dressing, transferring, toileti ng, ambulating now 250 feet with independence, up and down 5 steps independent, performing cognitive functioning with modified independence. Assessment: Mr. Jasmine is an 83-year-old patient in the rehabilitation unit with a right subcorti darlene stroke and he has some residual left-sided deficits. He has COVID-19 positivity with no signific ant symptoms, but is receiving Paxlovid given his age and comorbid conditions. His comorbidities inc lude diabetes, hypertension, dyslipidemia, osteoarthritis of the left knee. Plan: 1.Continue with physical, occupational, speech therapy for 3.5 hours, 5 of 7 days. 2.Continue Paxlovid per protocol. 3.Continue aspirin, Plavix for stroke risk reduction. 4.Continue Lipitor for dyslipidemia. 5.Continue all other medications including Protonix, Senokot-S. Comorbidities That Continue To Impact His Rehabilitation: He is COVID positive and has completed his treatment for Paxlovid 5 days twice daily and will re-test. Once he is through, and he is likely to be able to be discharged to group home to continue with therapy. MEI/CHAR Voice ID: [id number] Report ID: [id number]
[2023-09-19] MEDS: LIDOCAINE 4% PATCH TOP SCH (07:14)
[2023-09-19] MEDS: NIRMATRELVIR/RITONAVIR TABLET PO SCH ×2 (07:14→21:13)
[2023-09-19] MEDS: FLUTICASONE 50MCG NASAL SPRAY NAS SCH ×2 (07:15→21:11)
[2023-09-19] MEDS: PANTOPRAZOLE 40MG TABLET PO SCH (07:16)
[2023-09-19] MEDS: GABAPENTIN 100 MG CAP PO SCH ×2 (07:16→21:10)
[2023-09-19] MEDS: MAGNESIUM OXIDE 400 MG TAB PO SCH ×2 (07:16→21:11)
[2023-09-19] MEDS: ASPIRIN EC 81 MG TAB PO SCH (07:16)
[2023-09-19] MEDS: lisinopriL 20 MG TAB PO SCH ×2 (08:03→20:00)
[2023-09-19] MEDS: AMLODIPINE 5 MG TAB PO SCH ×2 (08:04→20:00)
[2023-09-19] MEDS: ENOXAPARIN 40 MG/0.4 ML SQ SCH (17:24)
[2023-09-19] MEDS: DOCUSATE NA/SENNA CONC 1 TAB PO PRN (21:10)
[2023-09-20 04:00] LABS: Absolute Lymphocytes (CBC) 1.4 K/uL (0.7-4.9); Hematocrit 38.6 % (39.6-49.0); Lymphocytes % 12.2 % (15.3-44.8); MCV 85.6 fL (80-100); Platelets 449 thou/uL (152-406); RBC Red Blood Cell Count 4.51 M/uL (4.33-5.43)
[2023-09-20 04:01] LABS: Albumin 2.7 g/dL (3.4-5.0); Magnesium 2.7 mg/dL (1.6-2.4); Prealbumin 11.1 mg/dL (20-40)
[2023-09-20] MEDS: MAGNESIUM OXIDE 400 MG TAB PO SCH ×2 (08:00→19:59)
[2023-09-20] MEDS: LIDOCAINE 4% PATCH TOP SCH (08:21)
[2023-09-20] MEDS: NIRMATRELVIR/RITONAVIR TABLET PO SCH ×2 (08:21→20:02)
[2023-09-20] MEDS: FLUTICASONE 50MCG NASAL SPRAY NAS SCH ×2 (08:22→20:00)
[2023-09-20] MEDS: lisinopriL 20 MG TAB PO SCH ×2 (08:23→20:00)
[2023-09-20] MEDS: AMLODIPINE 5 MG TAB PO SCH ×2 (08:23→20:00)
[2023-09-20] MEDS: PANTOPRAZOLE 40MG TABLET PO SCH (08:23)
[2023-09-20] MEDS: GABAPENTIN 100 MG CAP PO SCH ×2 (08:23→20:00)
[2023-09-20] MEDS: ASPIRIN EC 81 MG TAB PO SCH (08:24)
[2023-09-20] MEDS: ENOXAPARIN 40 MG/0.4 ML SQ SCH (16:19)
--- NOTE | 2023-09-20 21:30 | PN ---
Date of Progress Note: 09/20/2023 Riph-bx-[id number] Progress Note. Time Of Service: 1:35 p.m. Subjective: Mr. Jasmine is in a chair beside the bed. He is doing very well. Has no new complain ts. He is happy with his progress so far and he is [facility] to [facility] and he s hould be able to go tomorrow in the afternoon. Review of Systems: No fevers, chills, nausea, vomiting, myalgias, arthralgias. His left-sided deficit from the right parikh bcortical stroke is improving well. Physical Examination: Vital Signs: Blood pressure 144/72, pulse up to 102. He did have orthostatics while sitting 131/60, pulse of 74. Respiratory rate 16, temperature 98.0, oxygen saturation 96%. General: Mr. Jasmine is resting comfortably in a chair as noted. HEENT: Normocephalic, atraumatic. Sclerae anicteric. Oropharynx pink and moist. Neck: Supple. Chest: Clear. Heart: Regular. Extremities: Show no significant edema, cyanosis, or clubbing. His left-sided weakness is improving around 4/5 proximally and distally upper and lower extremities. Laboratory Studies: White blood cell count 11.1, hemoglobin 12.8, platelets 449. Sodium 136, potass ium 4.0, chloride 106, carbon dioxide 25, BUN 16, creatinine 0.90, glucose 94, calcium 8.3, magnesium 2.7, albumin also 2.7, and prealbumin 11.1. X-ray/imaging: No new x-rays or imaging. Medications: His medications have been reviewed and remained unchanged. Current Functional Status: Mr. Jasmine is able to ambulate 100 feet and 60 feet with a rolling wal ker independently. He did decrease his stride length to maintain stability. Supine to sit transfers done independently. He did multiple [id number]-[id number] transfers independently. He did bilateral upper e xtremity exercises, 4 sets of 15 green TheraBand to improve strength. He did complain of 5/10 pain i n his left knee where there are arthritic changes. Progress Towards Rehabilitation Goals: Mr. 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 He will likely be able to be [facility] afternoon. Assessment: Mr. Jasmine is an 83-year-old patient in the rehabilitation unit with a right subcorti darlene stroke and some residual left-sided weakness and numbness. He does have COVID-19 positivity, but is on Paxlovid. He is currently asymptomatic. He has hypertension, dyslipidemia, osteoarthritis, d iabetes mellitus. Plan: 1.Continue with physical, occupational, speech therapy for 3.5 hours, 5 of 7 days and to be discharg ed in the morning. 2.Continue all medications including Paxlovid, aspirin, Plavix, Lipitor, Protonix, and Senokot-S. Comorbidities That Continue To Impact His Rehabilitation: As noted, he is COVID positive, but he is not symptomatic. He will complete the 5 day course of Paxlovid, and if need be, a repeat test will b e done at the end of the session. MARTY Voice ID: [id number] Report ID: [id number]
[2023-09-21] MEDS: PANTOPRAZOLE 40MG TABLET PO SCH (07:49)
[2023-09-21] MEDS: lisinopriL 20 MG TAB PO SCH ×2 (07:50→20:00)
[2023-09-21] MEDS: NIRMATRELVIR/RITONAVIR TABLET PO SCH ×2 (07:51→20:37)
[2023-09-21] MEDS: ASPIRIN EC 81 MG TAB PO SCH (07:51)
[2023-09-21] MEDS: FLUTICASONE 50MCG NASAL SPRAY NAS SCH ×2 (07:52→20:36)
[2023-09-21] MEDS: GABAPENTIN 100 MG CAP PO SCH ×2 (07:52→20:00)
[2023-09-21] MEDS: LIDOCAINE 4% PATCH TOP SCH (07:52)
[2023-09-21] MEDS: AMLODIPINE 5 MG TAB PO SCH ×2 (09:51→20:36)
--- NOTE | 2023-09-21 13:46 | P.RH.PN ---
Estimated Length of Stay: 17 Expected Discharge Date: 09/24/23 Discharge Disposition Plan: Home Family Support: Yes Director Medical Affairs Goal: Mobility, Transfers, Self Care Vital Signs: Last Vital Signs Temp 97.8 F 09/21/23 08:00 Pulse 79 09/21/23 09:51 Resp 18 09/21/23 08:00 BP 129/57 L 09/21/23 09:51 Pulse Ox 98 09/21/23 08:00 Laboratory: Laboratory Last Values WBC 11.10 thou/uL (4.3-10.9) H 09/20/23 03:23 RBC 4.51 M/uL (4.33-5.43) 09/20/23 03:23 Hgb 12.8 g/dL (13.6-17.9) L 09/20/23 03:23 Hct 38.6 % (39.6-49.0) L 09/20/23 03:23 MCV 85.6 fL (80-100) 09/20/23 03:23 MCH 28.3 pg (27.0-35.0) 09/20/23 03:23 MCHC 33.1 g/dL (32.0-36.0) 09/20/23 03:23 RDW 14.3 % (12.1-15.2) 09/20/23 03:23 Plt Count 449 thou/uL (152-406) H 09/20/23 03:23 MPV 7.0 fL (7.6-11.3) L 09/20/23 03:23 Neutrophils % 74.6 % (41.7-73.7) H 09/20/23 03:23 Lymphocytes % 12.2 % (15.3-44.8) L 09/20/23 03:23 Monocytes % 10.0 % (3.3-12.3) 09/20/23 03:23 Eosinophils % 2.6 % (0-4.4) 09/20/23 03:23 Basophils % 0.6 % (0-1.3) 09/20/23 03:23 Absolute Neutrophils 8.3 K/uL (1.8-8.0) H 09/20/23 03:23 Absolute Lymphocytes 1.4 K/uL (0.7-4.9) 09/20/23 03:23 Absolute Monocytes 1.1 K/uL (0.1-1.3) 09/20/23 03:23 Absolute Eosinophils 0.3 K/uL (0-0.5) 09/20/23 03:23 Absolute Basophils 0.1 K/uL (0-0.5) 09/20/23 03:23 Platelet Estimate Adeq 09/10/23 13:58 Morphology Comment Not seen (NOT SEEN) 09/10/23 13:58 Sodium 136 mEq/L (136-145) 09/20/23 03:23 Potassium 4.0 mEq/L (3.5-5.1) 09/20/23 03:23 Chloride 106 mEq/L (98-107) 09/20/23 03:23 Carbon Dioxide 25 mEq/L (21-32) 09/20/23 03:23 Anion Gap 9.0 mEq/L (5.0-15.0) 09/20/23 03:23 BUN 16 mg/dL (7-18) 09/20/23 03:23 Creatinine 0.90 mg/dL (0.70-1.30) 09/20/23 03:23 Est GFR (CKD-EPI) 85 ml/min (=/>90) L 09/20/23 03:23 Glucose 94 mg/dL (74-106) 09/20/23 03:23 POC Glucose 124 mg/dL (65-120) H 09/12/23 11:30 Lactic Acid 1.3 mmol/L (0.4-2.0) 09/10/23 08:11 Calcium 8.3 mg/dL (8.5-10.1) L 09/20/23 03:23 Magnesium 2.7 mg/dL (1.6-2.4) H 09/20/23 03:23 Lactate Dehydrogenase 146 U/L (87-241) 09/09/23 19:22 C-Reactive Protein 160.00 mg/L (<3.00) H 09/12/23 08:32 Albumin 2.7 g/dL (3.4-5.0) L 09/20/23 03:23 Prealbumin 11.1 mg/dL (20-40) L 09/20/23 03:23 Procalcitonin < 0.05 ng/mL (<0.050) 09/09/23 19:22 Urine Color Yellow (Yellow) 09/07/23 22:00 Urine Clarity Clear (Clear) 09/07/23 22:00 Urine pH 5.5 (5.0-7.0) 09/07/23 22:00 Ur Specific [place] 1.028 (1.005-1.030) 09/07/23 22:00 Glucose (UA)(Auto) Negative (Negative) 09/07/23 22:00 Urine Ketones Negative (Negative) 09/07/23 22:00 Urine Blood Negative (Negative) 09/07/23 22:00 Urine Nitrite Negative (Negative) 09/07/23 22:00 Urine Bilirubin Negative (Negative) 09/07/23 22:00 Urine Urobilinogen 1+ (Normal) H 09/07/23 22:00 Ur Leukocyte Esterase Negative [place]/uL (Negative) 09/07/23 22:00 Urine RBC <5 /HPF (None Seen) 09/07/23 22:00 Urine WBC <5 /HPF (<5) 09/07/23 22:00 Ur Squamous Epith Cells <5 /HPF (None Seen) 09/07/23 22:00 Urine Bacteria None seen /HPF (<20) 09/07/23 22:00 Hyaline Casts 0-5 /LPF (None Seen) 09/07/23 22:00 Urine Mucus 1+ /HPF (None Seen) 09/07/23 22:00 Urine Culture Reflexed Not needed 09/07/23 22:00 Urine Total Protein Trace (Negative) H 09/07/23 22:00 Vancomycin Trough Cancelled 09/12/23 20:00 Rheumatoid Factor Neg (NEG) 09/10/23 05:20 SARS-CoV-2 Rap RNA(RT-PCR) Positive (NEGATIVE) A 09/16/23 08:40 Smear Scan Ok (OK) 09/10/23 13:58 Weight: 198 lb Wound Present: No Closed Surgical Incision Present: No Negative Pressure Wound Therapy Present: No Physician Update: He is covid-19 positive and on antivirals. Labs reviewed and are stable. He is making good progress with physical and occupational therapy. He will likely have to go back to his prior living facility with his exboss. 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 Please see the Rehabilitation Signature page for all necessary signatures.
[2023-09-21] MEDS: ENOXAPARIN 40 MG/0.4 ML SQ SCH (17:13)
[2023-09-22] MEDS: FLUTICASONE 50MCG NASAL SPRAY NAS SCH ×2 (07:34→19:34)
[2023-09-22] MEDS: PANTOPRAZOLE 40MG TABLET PO SCH (07:35)
[2023-09-22] MEDS: GABAPENTIN 100 MG CAP PO SCH ×2 (07:36→19:34)
[2023-09-22] MEDS: LIDOCAINE 4% PATCH TOP SCH (07:36)
[2023-09-22] MEDS: ASPIRIN EC 81 MG TAB PO SCH (07:36)
[2023-09-22] MEDS: AMLODIPINE 5 MG TAB PO SCH ×2 (07:36→19:35)
[2023-09-22] MEDS: NIRMATRELVIR/RITONAVIR TABLET PO SCH ×2 (07:37→19:35)
[2023-09-22] MEDS: lisinopriL 20 MG TAB PO SCH ×2 (07:37→19:35)
[2023-09-22] MEDS: ENOXAPARIN 40 MG/0.4 ML SQ SCH (17:54)
[2023-09-22] MEDS: DOCUSATE NA/SENNA CONC 1 TAB PO PRN (19:35)
[2023-09-22] MEDS ORDERED: POLYETHYL GLY 3350 17 GM/DOSE PO PRN (22:44)
[2023-09-23] MEDS: LIDOCAINE 4% PATCH TOP SCH (07:35)
[2023-09-23] MEDS: lisinopriL 20 MG TAB PO SCH ×2 (07:36→19:26)
[2023-09-23] MEDS: FLUTICASONE 50MCG NASAL SPRAY NAS SCH ×2 (07:37→19:27)
[2023-09-23] MEDS: PANTOPRAZOLE 40MG TABLET PO SCH (07:37)
[2023-09-23] MEDS: GABAPENTIN 100 MG CAP PO SCH ×2 (07:37→19:26)
[2023-09-23] MEDS: ASPIRIN EC 81 MG TAB PO SCH (07:37)
[2023-09-23] MEDS: CLOPIDOGREL 75 MG TABLET PO SCH (08:15)
[2023-09-23] MEDS: AMLODIPINE 5 MG TAB PO SCH ×2 (10:40→19:27)
[2023-09-23] MEDS: ENOXAPARIN 40 MG/0.4 ML SQ SCH (17:03)
[2023-09-23] MEDS: ATORVASTATIN 40 MG TAB PO SCH (19:26)
[2023-09-24] MEDS: FLUTICASONE 50MCG NASAL SPRAY NAS SCH ×2 (08:00→18:59)
[2023-09-24] MEDS: LIDOCAINE 4% PATCH TOP SCH (08:01)
[2023-09-24] MEDS: lisinopriL 20 MG TAB PO SCH ×2 (08:01→19:00)
[2023-09-24] MEDS: PANTOPRAZOLE 40MG TABLET PO SCH (08:02)
[2023-09-24] MEDS: CLOPIDOGREL 75 MG TABLET PO SCH (08:02)
[2023-09-24] MEDS: ASPIRIN EC 81 MG TAB PO SCH (08:02)
[2023-09-24] MEDS: GABAPENTIN 100 MG CAP PO SCH ×2 (08:02→19:00)
[2023-09-24] MEDS: AMLODIPINE 5 MG TAB PO SCH ×2 (10:21→19:00)
[2023-09-24] MEDS: ENOXAPARIN 40 MG/0.4 ML SQ SCH (17:55)
[2023-09-24] MEDS: ATORVASTATIN 40 MG TAB PO SCH (19:00)
--- NOTE | 2023-09-24 22:23 | PN ---
Date of Progress Note: 09/24/2023 Time Of Service: 1:45 p.m. Subjective: Mr. Jasmine is doing well. He is sitting in a chair beside bed. He has no new compla ints. He is happy about his therapy and ready for discharge. It is worked out that he will go back to his prior living arrangement and not detention. Review of Systems: No fevers, chills, nausea, vomiting, myalgias, arthralgias. His left-sided symptoms or his right-evon ed stroke have improved very well. Physical Examination: Vital Signs: Blood pressure 126/68, pulse of 56, respiratory rate 16, temperature 97.6, oxygen satur ation 97%. General: Mr. Jasmine is resting comfortably in terms of cranial nerves. No new deficits. His str ength is improving significantly on the left side. His coordination is improved. Balance and gait h ave also improved. X-ray/imaging: No new x-rays or imaging. Laboratory Studies: He did test positive for COVID-19 on 09/16. He has not had a retest yet. We wi ll retest in the morning. Medications: His medications have been reviewed and remained unchanged. Current Functional Status: Today, ambulated 150 feet with a rolling walker twice independently. Sti ll has decreased kim during his gait. With speech therapy, he demonstrated alternating attention skills for improved safety during a structured task with 90% accuracy with minimum assistance. Rega rding occupational therapy, independent with toileting, hygiene, bathing, upper and lower body dressi ng, and footwear, all independent. Progress Toward Rehabilitation Goals: Mr. Jasmine made excellent progress towards his goals of bec oming independent with upper and lower body dressing, transferring, toileting, showering, and dressin g. Cognitive functioning, working towards modified independence. Assessment: Mr. 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 He does have comorbid con ditions, which include a COVID-19 positivity, but he is actually asymptomatic. Also, has dyslipidemi a managed with medication. Has hypertension managed well and constipation and insomnia also doing ve ry well. He also has arthritic pain managed by a pain patch and that is doing very well. Plan: 1.Continue with physical and occupational therapy now. 2.Continue all medications as needed. Comorbidities That Continue To Impact His Rehabilitation: Currently, his comorbidities are stably ma naged and do not negatively impact his rehabilitation and it includes COVID-19. LB/MODL Voice ID: [id number] Report ID: [id number]
[2023-09-25 06:52] VITALS: TEMP 97
[2023-09-25] MEDS: PANTOPRAZOLE 40MG TABLET PO SCH (07:44)
[2023-09-25] MEDS: FLUTICASONE 50MCG NASAL SPRAY NAS SCH (07:44)
[2023-09-25] MEDS: LIDOCAINE 4% PATCH TOP SCH (07:44)
[2023-09-25] MEDS: GABAPENTIN 100 MG CAP PO SCH (07:45)
[2023-09-25] MEDS: ASPIRIN EC 81 MG TAB PO SCH (07:45)
[2023-09-25] MEDS: CLOPIDOGREL 75 MG TABLET PO SCH (07:45)
[2023-09-25] MEDS: lisinopriL 20 MG TAB PO SCH (07:45)
[2023-09-25 11:04] LABS: SARS-CoV-2 Antigen Rapid Res Negative (Negative)
[2023-09-25] MEDS: AMLODIPINE 5 MG TAB PO SCH (13:04)
[2023-09-25 13:05] VITALS: BP 129/67
== END 2023-09-25 14:55 | disposition home health service (06) | DRG 56 ==
LOC: 5TH 12:10
PROVIDERS: ADMIT Psychiatry & Neurology Neurology with Special Qualifications in Child Neurology; ATTEND Psychiatry & Neurology Neurology with Special Qualifications in Child Neurology
PROC: 0HBRXZZ Excision of Toe Nail, External Approach (ICD-10-PCS; principal; 2023-09-10)
PROC: 0HBRXZZ Excision of Toe Nail, External Approach (ICD-10-PCS; 2023-09-10)
PROC: 0HBRXZZ Excision of Toe Nail, External Approach (ICD-10-PCS; 2023-09-10)
PROC: 0HBRXZZ Excision of Toe Nail, External Approach (ICD-10-PCS; 2023-09-10)
PROC: 0HBRXZZ Excision of Toe Nail, External Approach (ICD-10-PCS; 2023-09-10)
PROC: 0HBRXZZ Excision of Toe Nail, External Approach (ICD-10-PCS; 2023-09-10)
PROC: 0HBRXZZ Excision of Toe Nail, External Approach (ICD-10-PCS; 2023-09-10)
PROC: 0HBRXZZ Excision of Toe Nail, External Approach (ICD-10-PCS; 2023-09-10)
PROC: 0HBRXZZ Excision of Toe Nail, External Approach (ICD-10-PCS; 2023-09-10)
PROC: 0HBRXZZ Excision of Toe Nail, External Approach (ICD-10-PCS; 2023-09-10)
DX: I69.354 Hemiplegia and hemiparesis following cerebral infarction affecting left non-dominant side (principal); U07.1 COVID-19; C18.9 Malignant neoplasm of colon, unspecified; I10 Essential (primary) hypertension; E11.9 Type 2 diabetes mellitus without complications; C61 Malignant neoplasm of prostate; M19.90 Unspecified osteoarthritis, unspecified site; M17.12 Unilateral primary osteoarthritis, left knee; B35.1 Tinea unguium; E78.5 Hyperlipidemia, unspecified; K57.90 Diverticulosis of intestine, part unspecified, without perforation or abscess without bleeding; K59.00 Constipation, unspecified; K21.9 Gastro-esophageal reflux disease without esophagitis; G47.00 Insomnia, unspecified; Z79.01 Long term (current) use of anticoagulants; Z91.148 Patient's other noncompliance with medication regimen for other reason
CPT/HCPCS: 36415; 71045; 71250; 74176; 76770; 80048; 81001; 82040; 82947; 83605; 83615; 83735; 84134; 84145; 85025; 86140; 86430; 87040; 87086; 87088; 87635; 87811; 92523; 93005; 97110; 97116; 97129; 97163; 97165; 97530; 97542; J0696; J1650; J2001; J2543; J7030; J7040; Q0162

== ENCOUNTER 2024-01-04 11:08 | Day surgery (SDC) | payer OTHER ==
[2023-12-20 11:59] LABS: Absolute Lymphocytes (CBC) 1.2 K/uL (0.7-4.9); Hematocrit 38.4 % (39.6-49.0); Lymphocytes % 15.7 % (15.3-44.8); MPV 6.9 fL (7.6-11.3); Platelets 339 thou/uL (152-406); RBC Red Blood Cell Count 4.46 M/uL (4.33-5.43)
[2023-12-20 12:05] LABS: Protime INR 1.1
[2023-12-20 12:28] LABS: Potassium 3.9 mEq/L (3.5-5.1)
[2023-12-20 12:36] LABS: Blood Morphology Comment NOT SEEN (NOT SEEN); Platelet Estimate ADEQ; White Blood Cell Scan OK (OK)
[2024-01-04] MEDS: Ringers Lactate 1,000 ML IV ONE (11:30)
[2024-01-04] MEDS ORDERED: KETOROLAC 30 MG/ML INJ ONE (13:58)
[2024-01-04] MEDS ORDERED: propofoL 200 MG/20 ML VIAL IV ONE (13:58)
[2024-01-04] MEDS ORDERED: dexAMETHasone 10 MG/ML VIAL ONE (13:58)
[2024-01-04] MEDS ORDERED: ONDANSETRON 4 MG/2 ML VIAL ONE (13:58)
[2024-01-04] MEDS ORDERED: FENTANYL CITR 100 MCG/2 ML ONE (13:58)
[2024-01-04] MEDS ORDERED: LIDOCAINE 2% MPF 5 ML VIAL ONE (13:58)
[2024-01-04] MEDS: CEFAZOLIN SODIUM 1 GM/VIAL ONE (14:29)
[2024-01-04] MEDS: BUPIVACAINE 0.25% PF 30 ML VIAL ONE (14:38)
--- NOTE | 2024-01-04 15:12 | P.OP ---
Preoperative diagnosis: RIGHT forearm lipoma Postoperative diagnosis: RIGHT forearm lipoma Primary procedure: Wide excision of RIGHT forearm lipoma Anesthesia: GETA + Local Estimated blood loss: <2cc Specimen: RIGHT forearm lipoma Findings: ~ 7cm lipoma of RIGHT forearm Complications: None Transferred to: Recovery Room Condition: Good
[2024-01-04 16:02] VITALS: TEMP 97.1
[2024-01-04 17:10] VITALS: BP 158/71; O2SAT 100
--- NOTE | 2024-01-05 02:17 | OP ---
Date of Procedure: 01/04/2024 Surgeon: Collette Brady MD, Preoperative Diagnosis: Right forearm lipoma. Postoperative Diagnosis: Right forearm lipoma. Procedure: Wide local excision of right forearm lipoma. Anesthesia: General endotracheal plus local with 0.25% Marcaine. Estimated Blood Loss: . Specimen: Right forearm lipoma. Findings: Approximately 7 cm lipomatous mass of the right forearm. Complications: None. Disposition: The patient was transferred to the recovery room in good condition. Procedure In Detail: After informed consent was obtained, the patient was brought to the operating r oom, prepped and draped in the usual sterile fashion after adequate anesthesia was achieved. I made an incision down to subcutaneous tissues overlying a very large obvious lipoma of the right forearm. I dissected out the subcutaneous tissue, circumferentially dissected out the mass using electrocaute ry predominantly with some blunt dissection ultimately removing the mass, sent off for pathologic exa mination. At this point, no additional history was required. I then took the ellipse of skin latera lly to allow for proper closure of the skin using tenotomy scissors. At this point, the area was [employer] iously irrigated. I then closed the deep dermal plane using interrupted 3-0 Vicryl sutures and the s kin was closed with 4-0 Monocryl in a running fashion, Dermabond placed over top. The patient tolera collette the procedure without evidence of complication, transferred to PACU in good condition. All counts were correct at the end of the case. ANDERSON/CHAR Voice ID: [id number] Report ID: [id number]
== END 2024-01-04 16:37 | disposition home or self-care (01) ==
LOC: OR 11:08
PROVIDERS: ATTEND Surgery
PROC: 0HBDXZZ Excision of Right Lower Arm Skin, External Approach (ICD-10-PCS; principal; 2024-01-04 13:45)
DX: D17.21 Benign lipomatous neoplasm of skin and subcutaneous tissue of right arm (principal)
CPT/HCPCS: 85025; 80048; 36415; 85610; 85730; 11406; J2704; J2001; J3010; J1100; J2405; J7120; J0690; 88304